=== PATIENT | male | born 1950 | race Caucasian/White ===

== ENCOUNTER 2021-08-17 07:28 | Outpatient (CLI) | payer MEDICARE, SELFPAY ==
--- NOTE | 2021-08-17 07:43 | ECG_ITS ---
Measurements Intervals [place] Rate: 59 P: 73 [place]: 213 QRS: -28 QRSD: 84 T: -20 QT: 378 QTc: 377 Interpretive Statements SINUS BRADYCARDIA WITH FIRST DEGREE AV BLOCK INCOMPLETE RIGHT BUNDLE BRANCH BLOCK BORDERLINE T WAVE ABNORMALITY- INFERIOR LEADS BASELINE ARTIFACT- I, II, III, AVR, AVL, AVF, V1-V6 ABNORMAL ECG Electronically Signed On 08-17-2021 8:59:54 CDT by Carlos Nguyen D.O.
== END 2021-08-17 07:29 | disposition home or self-care (01) ==
LOC: ANHSURGERY 07:33
PROVIDERS: PCP Pediatrics; Visit Provider Neurological Surgery
DX: Z01.810 Encounter for preprocedural cardiovascular examination (principal); I10 Essential (primary) hypertension; I45.10 Unspecified right bundle-branch block; I44.0 Atrioventricular block, first degree; R00.1 Bradycardia, unspecified
CPT/HCPCS: 93005

== ENCOUNTER 2021-09-29 13:00 | Observation (INO) | payer MEDICARE, SELFPAY ==
[2021-08-16 12:42] VITALS: BMI 30.4
--- NOTE | 2021-08-16 13:20 | PC.NURSE ---
Report to the Outpatient Waiting Room, entrance under the green pavilion located off [facility], at time _6:00AM on date __09/28/21 . OR Time: ___7:30AM . - You and your visitor will be asked a series of questions to screen for COVID 19 for your protection. - Only one visitor is allowed at this time. - The patient visitor is requested to leave or wait in car when not with patient. - A mask is required within the hospital. Patients may have clear liquids (water, carbonated beverages, clear teas, apple juice) until 3 hours prior to surgery with a maximum of 20 ounces. - No food from midnight until time of surgery - Infants may have breast milk until 4 hours before surgery, formula 6 hours prior to surgery. - Children will be allowed to drink immediately following surgery. If applicable, please bring a bottle or sippy cup to assist with drinking. Juice, water, soda, and popsicles are readily available. For infants on formula, please bring formula the day of surgery. Pacifiers are allowed. Take the following medications with a SIP of water the morning of surgery: __AMLODIPINE, CARVEDILOL, HYDROCODONE NEEDED Medications to discontinue per physician ___HOLD DICLOFENAC 7 DAYS PRE-OP Date to take last dose___08/22/21 Please no make-up, nail chilean, hairspray, perfume, deodorant, or body powder the day of surgery. No jewelry (including any body piercings) or valuables the day of surgery, leave them at home. Please take a shower or bath the night before, or the morning of, surgery with an antibacterial soap. Wear comfortable, loose fitting clothing. Children are encouraged to wear pajamas. - Jewelry must be removed prior to entering the operating room. Rings and piercings that are not removed may be cut off. - The hospital will not accept responsibility for valuables. - Please leave all valuables, including medications, at home the day of surgery. If you are going home after surgery, a licensed pick up truck driver must drive you home. - NO public transportation without another adult. - We recommend that an adult stay with you for 24 hours following discharge. - We also recommend that you do not drive, make important decision, drink alcoholic beverages, or take any drugs that were not prescribed by your health care provider for at least 24 hours after your discharge time. For Pediatric surgeries, we recommend two adults accompany the child home (only one inside the building at this time). Follow any additional instructions given to you from your surgeon. If you or anyone in your household have experienced Covid symptoms in the past week, please notify your surgeon or the nurse liaison at the phone number below for possible testing. Telephone instructions given to __PATIENT and asked if any additional questions and then verbalized understanding. Patient advised to call surgeon office or pre surgery nurse liaison [phone] if any additional questions.
--- NOTE | 2021-09-27 13:08 | WPDANESEPPF ---
Anes - Initial Pre Proc Eval Procedure: Operation Date: 09/28/21 07:30 Proposed Procedures p C4-5 Anterior Cervical Discectomy and Fusion - Elizeer Guerra MD Date/Time: 09/27/21 13:08 Surgeon: Eliezer Guerra MD Pre Op Diagnosis: neurofaraminal stenosis of spine, cervical spondyl Patient Data Age: 70 Gender: M Height: 1.73 m Weight: 91 kg Allergies Allergy/AdvReac Type Severity Reaction Status Date / Time No Known Allergies Allergy Verified 09/28/21 06:08 Home Medications Medication Instructions Recorded Confirmed Type amlodipine 10 mg tablet 1 tablet PO QAM 08/16/21 09/28/21 History carvedilol 12.5 mg tablet 1 tablet PO BID 08/16/21 09/28/21 History diclofenac sodium 75 mg 1 tablet PO QAM 08/16/21 09/28/21 History tablet,delayed release febuxostat 40 mg tablet 40 mg PO QAM 08/16/21 09/28/21 History hydrocodone 5 mg-acetaminophen 325 2 tablet PO Q4-6H PRN Pain 08/16/21 09/28/21 History mg tablet lisinopril 40 mg tablet 1 tablet PO QAM 08/16/21 09/28/21 History omeprazole 20 mg capsule,delayed 1 cap PO HS 08/16/21 09/28/21 History release psyllium husk 3.4 gram/5.4 gram 1 tbsp PO DAILY 08/16/21 09/28/21 History oral powder (Metamucil) ECG: Date of Service: 08/17/21 Procedure(s): CA 12 lead EKG Accession Number(s): [id number] cc: ~ ? Measurements Intervals? [place]? Rate: ? 59 ? P:? 73 [place]: ? 213? QRS:? -28 QRSD: ? 84 ? T:? -20 QT: ? 378? QTc:? 377? Interpretive Statements SINUS BRADYCARDIA WITH FIRST DEGREE AV BLOCK INCOMPLETE RIGHT BUNDLE BRANCH BLOCK BORDERLINE T WAVE ABNORMALITY- INFERIOR LEADS BASELINE ARTIFACT- I, II, III, AVR, AVL, AVF, V1-V6 ABNORMAL ECG Electronically Signed On 08-17-2021 8:59:54 CDT by Carlos Nguyen D.O. Patient hx anesthesia problems: none Family hx anesthesia problems: none Results Review: All pre-operative results and documents have been reviewed as part of the pre-operative evaluation. [facility] Past Medical History Medical History (Updated 09/28/21 @ 06:52 by Javier Carlos MD) Cervical spondylosis Chronic GERD HTN (hypertension) Obesity Osteoarthritis Spinal stenosis Social History Social History Smoking packs per day: 1 Smoking cigarettes per day: 20.0 Years smoked: 20 Smoking pack-years: 20.00 Smoking status: Former smoker Tobacco type: cigarettes Smoking end date: 09/23/79 Substance use: never Living arrangements: with family Additional living arrangements comments: Spiritual care concerns: No Anes - Eval Final PreProcedure Day of Procedure 09/27/21 13:08 Patient weight: obese Heart: regular rate and rhythm Lungs: clear to auscultation and normal air movement Airway: Mallampati scale class II Neurological: alert and oriented Last oral intake: >/= 8 hours ASA classification: III Emergent: no Anesthetic plan: proceed Anesthesia type and monitoring: general ETT Results Review: All pre-operative results and documents have been reviewed as part of the pre-operative evaluation. Informed Consent: The patient's anesthetic plan and its attendant risks and benefits were discussed with the patient/family/POA. Questions were solicited and answers provided to the satisfaction of the patient/family/POA.
[2021-09-28] VITALS (19 sets, daily range): BP systolic 107–167; BP diastolic 52–83; PULSE 58–85; RESP 12–20; TEMP 36.3–37; O2SAT 89–99
[2021-09-28] MEDS: LACTATED RINGERS 1,000 ML 30 ML IV CONT ×2 (07:10→09:38)
--- NOTE | 2021-09-28 07:36 | PM.IMHP ---
H&P: HPI History of Present Illness Date/Time: 09/28/21 07:36 Chief Complaint: Neck and arm pain Narrative: Mr. Munroe is a 70-year-old gentleman with neck and arm pain related to an L4-5 process who presents for anterior cervical diskectomy and fusion at that level. He has no specific muscle group weakness nor dermatomal numbness. He is not having bowel or bladder difficulty. Review of Systems Neurologic: Comments: No numbness or weakness PMFSH Past Medical History Medical History Cervical spondylosis Chronic GERD HTN (hypertension) Obesity Osteoarthritis Spinal stenosis Social History Social History Smoking packs per day: 1 Smoking cigarettes per day: 20.0 Years smoked: 20 Smoking pack-years: 20.00 Smoking status: Former smoker Tobacco type: cigarettes Smoking end date: 09/23/79 Substance use: never Living arrangements: with family Additional living arrangements comments: Spiritual care concerns: No Meds Home Medications and Allergies Home Medications Medication Instructions Recorded Confirmed Type amlodipine 10 mg tablet 1 tablet PO QAM 08/16/21 09/28/21 History carvedilol 12.5 mg tablet 1 tablet PO BID 08/16/21 09/28/21 History diclofenac sodium 75 mg 1 tablet PO QAM 08/16/21 09/28/21 History tablet,delayed release febuxostat 40 mg tablet 40 mg PO QAM 08/16/21 09/28/21 History hydrocodone 5 mg-acetaminophen 325 2 tablet PO Q4-6H PRN Pain 08/16/21 09/28/21 History mg tablet lisinopril 40 mg tablet 1 tablet PO QAM 08/16/21 09/28/21 History omeprazole 20 mg capsule,delayed 1 cap PO HS 08/16/21 09/28/21 History release psyllium husk 3.4 gram/5.4 gram 1 tbsp PO DAILY 08/16/21 09/28/21 History oral powder (Metamucil) Allergies Allergy/AdvReac Type Severity Reaction Status Date / Time No Known Allergies Allergy Verified 09/28/21 06:08 Vital Signs Vital Signs - 24 hr 09/28/21 07:14 Temperature 97.6 F Pulse Rate 61 Respiratory Rate 16 Blood Pressure 160/71 H Pulse Oximetry 99 Oxygen Delivery Room Air Exam Narrative: Patient is an elderly white male supine on the hospital bed in no acute distress. He is awake, alert, oriented x3 with good fund of knowledge, recall events and fluent speech. His face is symmetrical and his eyes were conjugate. He has no upper extremity drift dysmetria or dyspraxia. Strength is 5/5 in all muscle groups of the bilateral upper extremities. Sensation is intact to light touch at the upper extremities Clear to auscultation Regular rate and rhythm Assessment and Plan Assessment and plan (1) Cervical spondylosis: Code(s): M47.812 - Spondylosis without myelopathy or radiculopathy, cervical region Status: Acute Plan We will proceed with the planned C4-5 anterior cervical diskectomy and fusion. I described to him again that operation, its risks, potential benefits, the operative and postoperative course in detail and answered all his questions personally. He indicates understanding and elects to proceed with that operation.
--- NOTE | 2021-09-28 07:40 | WPDHPUPDATE1 ---
History and Physical Update Update Date/Time: 09/28/21 07:40 History and Physical has been reviewed, including an updated exam of the patient. There are NO changes in the patient's condition. Risks, benefits, and alternatives have been discussed and questions answered. Patient agrees to proceed with procedure.
[2021-09-28] MEDS: ceFAZolin 2 GM/D5W 50 ML 2 GM/50 ML BAG IVPB (08:00)
[2021-09-28] MEDS: LIDO 1%/EPINEPHRINE/PF 1:200,000 30 ML VIAL 10 ML XX (08:32)
--- NOTE | 2021-09-28 09:35 | W.PM.PROC2 ---
Procedure Note - Detailed Date of Procedure 09/28/21 Pre-op Diagnosis neurofaraminal stenosis of spine, cervical spondyl Post-op Diagnosis Same Procedure Performed C4-5 anterior cervical diskectomy and fusion Surgeon Eliezer Guerra MD Environmental Epidemiologist Daniel Anesthesia General Indications Mr. Munroe is a 70-year-old gentleman with neck and arm pain related to the above pathology who presents for decompression and fusion from an anterior approach. Findings Foraminal stenosis, spondylosis Description of Procedure Mr. Munroe was brought to the operating room in the supine position, was sedated, intubated and placed under general anesthesia in routine fashion. The area of operation on the right side of his neck was examined, marked for incision, prepped and draped in routine sterile fashion. Incision was marked from the midline over the medial aspect of the sternocleidomastoid muscle in curvilinear transverse fashion 3 fingerbreadths above the sternal notch. This area was injected with 0.5% lidocaine with [id number] epinephrine. Intravenous antibiotics given prior to incision. Incision was made with a 10 blade scalpel down to the platysma muscle. The skin was undermined and the platysma muscle was divided longitudinally with its fibers using Metzenbaum scissors. Plane was then dissected medial to the sternocleidomastoid muscle down to the anterior aspect of the spine using the finger and Metzenbaum scissors. A verifying x-rays obtained to verify the level of operation. The plate at the level below was identified. Longus colli muscle was dissected free of the anterior aspect of the spine in the subperiosteal plane using Bovie cautery. Shadow Line retractor system placed. [place] pins were placed into C4 and C5 and distraction placed over the disc space. The disc space was entered using a 15 blade scalpel cutting along the margin of bone above and below. A curved curette and pituitary rongeur were used to remove as much cartilaginous endplate disc material was possible that the bleeding cortical flat surface on the opposing bones and down to the annulus and ligament posteriorly. The Midas-Johan drill was used to bur down the endplates to bleeding cortical flat surfaces as well as to begin a bony foraminotomy bilaterally. Under microscopy curved curette was used to come through the annulus and ligament. 2. Kerrison punch was then used to remove the annulus ligament, posterior osteophytes and to complete a bony foraminotomy bilaterally. This was done until a nerve hook could be placed out each foramen to confirm lack of compression. The disc space was then sized and a 7 mm Z Lenke interbody device was chosen and filled with a mixture of local autograft bone and I factor. It was then tamped into the interspace until the intervertebral titanium plate was flush with the anterior aspect of the spine. A drill and drill guide were used to create holes through the endplate into the vertebral body above and below. 16 mm screws were then placed into these holes to hand tightness and into the locking mechanism. The locking mechanism was then engaged at each screw. A verified x-rays obtained to verify good position of the instrumentation which was confirmed. The wound was then copiously irrigated with bacitracin irrigation all bleeding stopped with bipolar and Bovie cautery and Surgiflo. The wound was then closed in layered fashion with 3-0 Vicryl interrupted sutures in the platysma muscle and in the dermis. The skin was closed with a running 4-0 Monocryl subcuticular stitch and dressed with Dermabond. The patient was allowed to come out from general anesthesia in the operating room and was taken to the recovery room in stable condition. There were no immediate complications of this operation. All counts were reported correct at the end of the case. Blood loss was 10 cc. The patient was neurologically at his baseline postoperatively. Implants Z-link integral
[2021-09-28] MEDS: fentaNYL CITRATE INJ (*CRX) 100 MCG/2 ML VIAL 25 MCG IV PUSH ×6 (10:23→12:52)
--- NOTE | 2021-09-28 11:42 | SUR.PHASEI ---
1135; LUNCH TRAY ORDERED
[2021-09-28] MEDS: oxyCODONE HCL (*CRX) 5 MG TAB IR PO (12:35)
--- NOTE | 2021-09-28 13:05 | SUR.PHASEI ---
report faxed to [address] [place] [address]. Pt and spouse notified of room number 251
--- NOTE | 2021-09-28 13:45 | ADMGEN ---
This patient, Jerry Munroe, was admitted to Medical Room 251-01. Patient/family oriented to hospital policies and general routines including ID bracelet, bed and alarms, visiting hours, pain management, procedures, bathroom and other care routines, personal items, smoking policy, room service/diet, and visiting hours. Information on how to activate the Rapid Response Team has been discussed. Patient/Family are encouraged to report perceived risks to care and to ask questions if they do not understand what they are told or what they should do.
[2021-09-28] MEDS: HYDROcodone/acetaminophen (*CRX) 5-325 MG TABLET 1 TAB PO (14:24)
[2021-09-28] MEDS: MORPHINE SULFATE (*CRX) 2 MG/ML INJ IV PUSH ×2 (16:14→20:09)
[2021-09-28] MEDS: DOCUSATE SODIUM 100 MG CAPSULE PO (20:08)
[2021-09-28] MEDS: carvediloL 12.5 MG TABLET PO (20:08)
[2021-09-28] MEDS: PANTOPRAZOLE 40 MG TABLET PO (20:09)
[2021-09-28] MEDS: HYDROcodone/acetaminophen (*CRX) 10-325 MG TABLET 1 TAB PO (23:24)
[2021-09-29] VITALS (7 sets, daily range): BP systolic 137–150; BP diastolic 55–71; PULSE 53–77; RESP 17–20; TEMP 36–37.1; O2SAT 93–99
--- NOTE | ~2021-09-29 | XR_ITS ---
XR fluoroscopy no charge DATE: 09/28/2021 11:31 INDICATION: Anterior cervical discectomy TECHNIQUE: 2 spot lateral C-arm images of the cervical spine. 8.9 seconds fluoroscopy time 1.69 mGy COMPARISON: None FINDINGS: Instrumentation overlies the C4-C7 vertebra. Please refer to surgical procedure report. IMPRESSION: Anterior cervical discectomy Reviewed, dictated and finalized at [facility]. Reviewed, dictated and finalized at [facility].
[2021-09-29] MEDS: HYDROcodone/acetaminophen (*CRX) 10-325 MG TABLET 1 TAB PO ×3 (06:39→20:19)
--- NOTE | 2021-09-29 09:20 | PM.PNGS ---
Progress Note: A&P Assessment and Plan (1) Cervical spondylosis: Code(s): M47.812 - Spondylosis without myelopathy or radiculopathy, cervical region Status: Acute Assessment and Plan: PAtient is doing well post ACDF Continue to mobilize Anticipate stay until POD#2 due to patinet concerns for ensuring patent airway Subjective Subjective Date/Time Seen: 09/29/21 09:20 PAtient notes muscle spasms in shoulder blade on right. LUE pain resolved Notes history of postoperative hematoma from prior surgery; nervous about repeated possbility Desires to stay until POD #2 No difficulties with swallowing; voice strong Exam Narrative: Awake, alert oriented x 3 Speech CF JESSICA EOMI Face= TML MAEW with good strength Dressing / incision CDI Objective Data Vital Signs Vital Signs: Vital Signs - 24 hr 09/28/21 09:45 09/28/21 10:00 09/28/21 10:15 Temperature 97.6 F Pulse Rate 75 70 70 Respiratory Rate 20 20 20 Blood Pressure 145/67 H 146/75 H 139/75 Pulse Oximetry 97 99 93 Oxygen Delivery Simple Face Mask Simple Face Mask Room Air Oxygen Flow Rate 8 8 09/28/21 10:30 09/28/21 10:45 09/28/21 11:00 Temperature Pulse Rate 67 67 62 Respiratory Rate 16 14 12 Blood Pressure 143/67 H 111/75 159/83 H Pulse Oximetry 99 93 95 Oxygen Delivery Room Air Room Air Room Air Oxygen Flow Rate 09/28/21 11:30 09/28/21 12:00 09/28/21 12:30 Temperature Pulse Rate 74 66 70 Respiratory Rate 18 18 18 Blood Pressure 107/64 118/61 114/52 L Pulse Oximetry 95 95 94 Oxygen Delivery Room Air Room Air Room Air Oxygen Flow Rate 09/28/21 13:00 09/28/21 13:50 09/28/21 14:20 Temperature 97.4 F L 97.9 F Pulse Rate 66 58 L 72 Respiratory Rate 20 15 16 Blood Pressure 134/74 132/63 144/62 H Pulse Oximetry 97 95 Oxygen Delivery Room Air Oxygen Flow Rate 09/28/21 15:10 09/28/21 16:10 09/28/21 19:32 Temperature 98.1 F 98 F 97.6 F Pulse Rate 67 79 64 Respiratory Rate 14 16 20 Blood Pressure 138/61 143/78 H 165/63 H Pulse Oximetry 93 96 89 L Oxygen Delivery Oxygen Flow Rate 09/28/21 20:08 09/28/21 20:00 09/28/21 23:17 Temperature 98.6 F Pulse Rate 64 64 85 Respiratory Rate 20 20 Blood Pressure 167/76 H Pulse Oximetry 89 L 95 Oxygen Delivery Room Air Oxygen Flow Rate 09/29/21 03:17 Temperature 97.8 F Pulse Rate 77 Respiratory Rate 20 Blood Pressure 150/69 H Pulse Oximetry 93 Oxygen Delivery Oxygen Flow Rate Intake/Output Intake/Output: Intake & Output 09/26/21 09/27/21 09/28/21 09/29/21 23:59 23:59 23:59 23:59 Intake Total 3500 580 Output Total 1275 Balance 2225 580 Meds/Results Medications: Active Medications Generic Name Dose Route Start Last Admin Trade Name Freq PRN Reason Stop Dose Admin Hydrocodone Bitart/Acetaminophen 1 tab 09/28/21 13:29 09/28/21 14:24 Hydrocodone/Acetaminophen (*Crx) 5-325 Mg Tablet PO 1 tab Q4H PRN Administration Mild Pain (1-3) Hydrocodone Bitart/Acetaminophen 1 tab 09/28/21 13:29 09/29/21 06:39 Hydrocodone/Acetaminophen (*Crx) 10-325 Mg Tablet PO 1 tab Q4H PRN Administration Moderate Pain (4-6) Al Hydrox/Mg Hydrox/Simethicone 20 ml 09/28/21 13:29 Mag Hydrox/Al Hydrox/Simeth 30 Ml Udc PO Q4H PRN Indigestion/Heartburn Amlodipine Besylate 10 mg 09/29/21 09:00 Amlodipine Besylate 5 Mg Tablet PO QAM ZULEMA Bisacodyl 10 mg 09/28/21 13:29 Bisacodyl 10 Mg Suppository RECTAL DAILY PRN Constipation Carvedilol 12.5 mg 09/28/21 21:00 09/28/21 20:08 Carvedilol 12.5 Mg Tablet PO 12.5 mg Q12HR ZULEMA Administration Cyclobenzaprine HCl 10 mg 09/28/21 13:29 Cyclobenzaprine Hcl 10 Mg Tablet PO TID PRN Muscle Spasms Docusate Sodium 100 mg 09/28/21 21:00 09/28/21 20:08 Docusate Sodium 100 Mg Capsule PO 100 mg Q12HR ZULEMA Administration Febuxostat 40 mg 09/29/21 09:00 Febuxostat 40 Mg Tablet PO 10/29/21 08:59
[2021-09-29] MEDS: carvediloL 12.5 MG TABLET PO ×2 (09:43→20:19)
[2021-09-29] MEDS: DOCUSATE SODIUM 100 MG CAPSULE PO ×2 (09:43→20:19)
[2021-09-29] MEDS: amLODIPine BESYLATE 5 MG TABLET 10 MG PO (09:44)
[2021-09-29] MEDS: lisinopriL 20 MG TABLET 40 MG PO (09:44)
[2021-09-29] MEDS: FEBUXOSTAT 40 MG TABLET PO (09:45)
[2021-09-29] MEDS: PSYLLIUM POWDER PACKET 1 PACKET PO (09:45)
--- NOTE | 2021-09-29 11:42 | PCCCNOTE ---
On 09/29/21, the student, [Shereen Whitaker ], provided care and completed [facility] documentation on this patient. I have reviewed the student's documentation and agree with the findings.
[2021-09-29] MEDS: PANTOPRAZOLE 40 MG TABLET PO (20:19)
[2021-09-30] MEDS: HYDROcodone/acetaminophen (*CRX) 10-325 MG TABLET 1 TAB PO ×3 (01:40→11:03)
[2021-09-30 03:12] VITALS: BP 138/63; PULSE 55; RESP 16; TEMP 36.7; O2SAT 94
[2021-09-30] MEDS: lisinopriL 20 MG TABLET 40 MG PO (08:53)
[2021-09-30] MEDS: PSYLLIUM POWDER PACKET 1 PACKET PO (08:53)
[2021-09-30] MEDS: carvediloL 12.5 MG TABLET PO (08:54)
[2021-09-30] MEDS: amLODIPine BESYLATE 5 MG TABLET 10 MG PO (08:54)
[2021-09-30] MEDS: FEBUXOSTAT 40 MG TABLET PO (08:57)
--- NOTE | 2021-09-30 13:26 | PM.DS ---
DS: Admitting Diagnosis Discharge Date 09/30/2021 Admitting Diagnosis Cervical spondylosis and foraminal stenosis DS: Discharge Diagnosis Discharge Diagnosis (1) Cervical spondylosis: Code(s): M47.812 - Spondylosis without myelopathy or radiculopathy, cervical region Status: Acute DS: Summary Hospital Course Reason for hospitalization: Mr. Munroe is a 70-year-old gentleman who presented to the hospital for a C4-5 anterior cervical diskectomy and fusion to treat spondylosis and foraminal stenosis causing radiculopathy. Hospital Course: Mr. Munroe was taken to the operating room on 09/28/2021 with the aforementioned operation was performed without complication. The patient went to the floor postoperatively. Physical and occupational therapy were involved in his care. By postoperative day 2 he was eating, ambulating, emptying his bladder his pain was under control with by mouth pain medicine. Wounds remained clean dry and intact. He was afebrile stable vital signs. He was neurologically intact. He was therefore like to be discharged to home. Time Spent with Patient Time attestation: Total time spent providing and/or coordinating discharge services: Discharge Plan Discharge Attending physician on discharge: Eliezer Guerra Discharging Clinician: Eliezer Guerra Anticipated Discharge Date/Time: 09/30/21 13:21 Patient Disposition: Home, Self-Care Activity: may shower, may drive after 2 weeks and other - see discharge instructions Diet: as tolerated and regular Wound Care Instructions: incision open to air Discharge Instructions: INSTRUCTIONS AFTER YOUR CERVICAL FUSION (ANTERIOR OR POSTERIOR)/CERVICAL DISC REPLACEMENT (ARTHRODESIS) Incisions may be closed with either: Steri-strip tapes (let them wear off on their own). Surgical glue (let it peel off on its own). Sutures or justen (call the office for an appointment to have these removed). Keep the incision dry for the first three days after surgery. Never apply ointments or lotions to the incision. The incision should be checked daily. Notify the office if there is drainage, redness, or if you have fever with a temperature of over 100 degrees. After the third postop day, it is okay to shower. Let soap and water run over your incision. No soaking in a tub, hot tub, or pool for at least one month. You are encouraged to walk as much as comfortable, with assistance as needed. For example, it may be beneficial to walk short distances hourly during the waking hours and gradually increase walking during your recovery period. Fatigue can be common. If a collar has been instructed by your physician, follow the instructions you were given. Please call the office for clarification if needed. Avoid any bending or heavy lifting. You have an [id number]-pound lift restriction until further advised by your physician (A gallon of milk weighs eight pounds). Sometimes a bone growth stimulator will be used after surgery. Instructions for the use of the stimulator will come from your field marketing representative. Make frequent position changes, avoiding long periods of sitting. Try not to sit more than 30 minutes at a time. You may engage in sexual activity in two weeks as tolerated. No housework, especially vacuuming, making beds, or doing laundry until seen in the office. You may walk stairs carefully. Minimize car rides for two weeks. Driving can usually be resumed after three to four weeks; however, you may not drive at that time if still taking pain medications, or if you are still wearing your hard collar. Once you are discharged from the hospital, please call the office to set up your postop appointment. The physician may order pain medication and/or muscle relaxers. As time goes by, you should require less of these. Always take your medication as ordered, and only if needed. If you take more than prescribed, it will not be refilled early. If you feel you require dennis
== END 2021-09-30 14:05 | disposition home or self-care (01) ==
LOC: ANHSURGERY 13:05 → ANH2MED 13:05
PROVIDERS: Admitting Provider Neurological Surgery; PCP Pediatrics; Visit Provider Neurological Surgery
PROC: 0RB30ZZ Excision of Cervical Vertebral Disc, Open Approach (ICD-10-PCS; CPT 22551; principal; 2021-09-28 07:30)
DX: M47.812 Spondylosis without myelopathy or radiculopathy, cervical region (principal); M48.02 Spinal stenosis, cervical region; I10 Essential (primary) hypertension; K21.9 Gastro-esophageal reflux disease without esophagitis; M19.90 Unspecified osteoarthritis, unspecified site; E66.9 Obesity, unspecified; Z68.29 Body mass index [BMI] 29.0-29.9, adult; Z87.891 Personal history of nicotine dependence; Z79.891 Long term (current) use of opiate analgesic
CPT/HCPCS: 22551; 22853; 20936; 36415; 86850; 86900; 86901; 99199; A9270; G0378; J0690; J1170; J2250; J2270; J2405; J2704; J3010; J7120

== ENCOUNTER 2021-10-06 13:03 | Emergency (ER) | payer MEDICARE, SELFPAY ==
[2021-10-06] VITALS (22 sets, daily range): BP systolic 141–177; BP diastolic 78–98; PULSE 78–97; RESP 16–18; TEMP 35.9–36.3; O2SAT 93–99
--- NOTE | ~2021-10-06 | CT_ITS ---
EXAMINATION: CT soft tissue neck w con DATE: 10/06/2021 16:13 INDICATION: Dysphagia and throat swelling post recent neck surgery TECHNIQUE: Computed tomography (CT) of the neck was performed with 75 mL Omnipaque-300 intravenous co ntrast. Automated exposure control and iterative reconstruction technique were employed. The dose-lucinda gth product was 493.28 mGy-cm. COMPARISON: None FINDINGS: Chronic C5-C6 anterior spinal fusion with incorporated bone graft and anterior plate and screw fixati on. Presumably more recent anterior spinal fusion procedure at C4-C5 with not incorporated bone graft material with bone graft cage and anterior plate and screw fixation. There is a loculated fluid ad ection in the prevertebral space anterior to C3 and C4 which measures 2.7 cm craniocaudally and 2.6 x 1.5 cm in maximal transaxial dimensions which exerts mass effect upon the posterior wall of the hypo pharynx. There is a 10 x 10 x 7 mm foreign body in the left side of the vallecula. Epiglottis is norm al. 1.8 cm hypoenhancing left thyroid nodule. Bilateral parotid and submandibular glands are normal. Thoracic aorta is normal in caliber with no dissection. Left vertebral artery is dominant with diminu tive right vertebral artery. Visualized apices of lungs are clear. Mild mucosal thickening in the par anasal sinuses with change of bilateral antrectomies and middle turbinectomies. IMPRESSION: 1. 2.7 x 2.6 x 1.5 cm prevertebral fluid collection anterior to a reportedly recent C4-C5 anterior sp inal fusion with differential including hematoma/seroma or abscess. This exerts mass effect upon the posterior wall of the hypopharynx likely accounting for the reported dysphagia. 2. Retained foreign body in the left side of the vallecula. Reviewed, dictated and finalized at location B. IMPRESSION: 1. 2.7 x 2.6 x 1.5 cm prevertebral fluid collection anterior to a reportedly re cent C4-C5 anterior spinal fusion with differential including hematoma/seroma o r abscess. This exerts mass effect upon the posterior wall of the hypopharynx l ikely accounting for the reported dysphagia. 2. Retained foreign body in the left side of the vallecula.
--- NOTE | 2021-10-06 13:38 | ED.GENADULT ---
HPI - General Adult General Chief complaint: Unspecified <RODOLFO Cruz Last Filed: 10/06/21 19:48> Stated complaint: something stuck in throat <RODOLFO Cruz Last Filed: 10/06/21 19:48> Time Seen by Provider: 10/06/21 13:21 <RODOLFO Cruz Last Filed: 10/06/21 19:48> Source: patient <RODOLFO Cruz Last Filed: 10/06/21 19:48> Mode of arrival: ambulatory <RODOLFO Cruz Last Filed: 10/06/21 19:48> Limitations: no limitations <RODOLFO Cruz Last Filed: 10/06/21 19:48> History of Present Illness HPI narrative: Patient is a 71 y/o female who presents to the ED with c/o dysphagia. Patient had a C4-5 anterior cervical discectomy and fusion performed by Dr. Daniel here on 09/28. He reports he has been having some issues with swelling in his anterior neck and dysphagia since the surgery. He felt the swelling became worse last night, but seems to have improved slightly today. This morning however he was attempting to take a pill and felt the pill became stuck in his throat. Denies any vomiting. States he was still able to drink and pass water. Patient reports the pill seems to have moved through upon my evaluation. He denies feeling like it is stuck any longer. He is concerned about the neck swelling however. Denies any difficulty breathing. No swelling of lips, tongue. Denies any significant neck pain. No fevers. He has follow-up with Dr. Daniel 6 weeks post op. <RODOLFO Cruz Last Filed: 10/06/21 19:48> Related Data Home medications: Home Medications Medication Instructions Recorded Confirmed amlodipine 10 mg tablet 1 tablet PO QAM 08/16/21 09/28/21 carvedilol 12.5 mg tablet 1 tablet PO BID 08/16/21 09/28/21 diclofenac sodium 75 mg 1 tablet PO QAM 08/16/21 09/28/21 tablet,delayed release febuxostat 40 mg tablet 40 mg PO QAM 08/16/21 09/28/21 lisinopril 40 mg tablet 1 tablet PO QAM 08/16/21 09/28/21 omeprazole 20 mg capsule,delayed 1 cap PO HS 08/16/21 09/28/21 release psyllium husk 3.4 gram/5.4 gram 1 tbsp PO DAILY 08/16/21 09/28/21 oral powder (Metamucil) <Yajaira Beth PA-C - Last Filed: 10/06/21 19:48> Allergies/adverse reactions: Allergies Allergy/AdvReac Type Severity Reaction Status Date / Time No Known Allergies Allergy Verified 10/06/21 13:22 <Yajaira Beth PA-C - Last Filed: 10/06/21 19:48> Review of Systems Review of Systems: CONSTITUTIONAL: Denies fever. ENT: Reports swelling of anterior neck, dysphagia. Denies swelling of lips/tongue, sore throat. CARDIOVASCULAR: Denies chest pain. RESPIRATORY: Denies dyspnea. GASTROINTESTINAL: Denies nausea, vomiting. SKIN: Denies rash or itching. MUSCULOSKELETAL: Denies neck pain. <Yajaira Beth PA-C - Last Filed: 10/06/21 19:48> All systems reviewed & are unremarkable except as noted in HPI and below <Yajaira Beth PA-C - Last Filed: 10/06/21 19:48> [facility] Past Medical History Medical History: Medical History Cervical spondylosis Chronic GERD HTN (hypertension) Obesity Osteoarthritis Spinal stenosis <Yajaira Beth PA-C - Last Filed: 10/06/21 19:48> Surgical History Surgical History: Surgical History (Updated 10/06/21 @ 13:39 by Yajaira Beth PA-C) History of cervical discectomy <Yajaira Beth PA-C - Last Filed: 10/06/21 19:48> Social History Social History: Social History Smoking packs per day: 1 Smoking cigarettes per day: 20.0 Years smoked: 20 Smoking pack-years: 20.00 Smoking status: Former smoker Tobacco type: cigarettes Smoking end date: 09/23/79 Alcohol intake: never Substance use: never Additional living arrangements comments: Spiritual care concerns: No <Yajaira Beth PA-C - Last Filed: 10/06/21 19:48> Exam Narrative: GENERAL: Well appearing, well-nou
[2021-10-06 14:15] LABS: Basophils Percent Auto 0.6 % (0.2-1.2); Eosinophils Absolute Auto 0.2 K/mm3 (0-0.3); Eosinophils Percent Auto 3.2 % (0-4.4); Hematocrit 45.1 % (42.0-52.0); Hemoglobin 15.6 g/dL (14.0-18.0); Immature Granulocyte Absolute 0.03 K/mm3 (0.00-0.031); Immature Granulocyte Percent A 0.4 % (0-0.5); Lymphocytes Absolute Auto 1.78 K/mm3 (0.9-3.2); Lymphocytes Percent Auto 25.6 % (18.3-44.2); Mean Corpuscular HGB Conc 34.6 g/dl (32-36); Mean Corpuscular Hemoglobin 29.9 pg (26-34); Mean Corpuscular Volume 86.4 fl (80-100); Mean Platelet Volume 9.6 fl (7.4-10.4); Monocytes Absolute Auto 0.6 K/mm3 (0.1-0.6); Monocytes Percent Auto 8.1 % (2.6-8.5); Neutrophils Absolute Auto 4.3 K/mm3 (1.3-6.7); Neutrophils Percent Auto 62.1 % (45.5-73.1); Platelet Count Result 189 k/mm3 (150-375); Red Blood Count 5.22 M/mm3 (4.6-6.20); Red Cell Distribution Width 13.2 % (11.5-14.5)
[2021-10-06 14:25] LABS: Alanine Aminotransferase 46 U/L (6-50); Albumin Level 4.3 g/dL (3.5-5.1); Alkaline Phosphatase 94 U/L (38-126); Anion Gap 3 mmol/L (8-16); Aspartate Amino Transferase 37 U/L (17-59); Bilirubin,Total 0.6 mg/dL (0.2-1.3); Blood Urea Nitrogen 15 mg/dL (9-20); Calcium 8.9 mg/dL (8.4-10.2); Carbon Dioxide 27 mmol/L (22-30); Chloride 105 mmol/L (98-107); Estimated CRCL calculation 65 ml/min; Estimated Glomerular Filt Rate > 60; Glucose 107 mg/dL (65-110); Potassium 4.6 mmol/L (3.4-5.0); Sodium 135 mmol/L (137-145)
--- NOTE | 2021-10-06 17:33 | PC.NURSE ---
Hx of HTN, has evening dose of medication due tonight. BP reading 166/98, CHRISTOPHE Gates aware. No new orders at this time.
== END 2021-10-06 18:00 | disposition home or self-care (01) ==
PROVIDERS: Physician Assistant; Emergency Provider Emergency Medicine; PCP Pediatrics
DX: G97.61 Postprocedural hematoma of a nervous system organ or structure following a nervous system procedure (principal); R13.10 Dysphagia, unspecified; Z98.1 Arthrodesis status; I10 Essential (primary) hypertension; M19.90 Unspecified osteoarthritis, unspecified site; E66.9 Obesity, unspecified; Z68.31 Body mass index [BMI] 31.0-31.9, adult; Z87.891 Personal history of nicotine dependence
CPT/HCPCS: 36415; 70491; 80053; 85025; 99284; Q9967

== ENCOUNTER 2021-11-13 09:45 | Outpatient (CLI) | payer MEDICARE, SELFPAY ==
--- NOTE | ~2021-11-13 | XR_ITS ---
EXAMINATION:XR_CERV2-3V_CR DATE: 11/13/2021 10:09 INDICATION: Neck pain TECHNIQUE: AP, lateral, lateral swimmers and odontoid views of the cervical spine are provided. COMPARISON: 10/06/2021 FINDINGS: There are changes of anterior fusion and C4-5 and C5-6. Alignment is normal. The odontoid i s intact. No fracture is identified. The vertebral body heights are normal. There is severe facet ost eoarthritis in the mid cervical spine. Prevertebral soft tissues are normal. IMPRESSION: 1. Severe cervical spondylosis without acute findings. Reviewed, dictated and finalized at location B.
== END 2021-11-13 09:46 | disposition home or self-care (01) ==
PROVIDERS: PCP Pediatrics; Visit Provider Neurological Surgery
DX: M47.812 Spondylosis without myelopathy or radiculopathy, cervical region (principal)
CPT/HCPCS: 72040

== ENCOUNTER 2022-02-19 10:26 | Outpatient (CLI) | payer MEDICARE, SELFPAY ==
--- NOTE | ~2022-02-19 | XR_ITS ---
EXAM: XR_CERV2-3V_CR DATE: 02/19/2022 10:47 HISTORY: Neck pain, follow-up s/p sx in September 2021, h/o cervical discectomy. COMPARISON: 11/13/2021. FINDINGS: Anterior cervical fusion at C4-5 and C5-6. Interbody bone plug and devices remain in stabl e and good position Craniocervical association and atlantoaxial joint are aligned and display moderat e degenerative change. No prevertebral soft tissue swelling. Trace anterolistheses at C3-4 and C7-T1. Height loss at C5, remaining body heights are maintained. Multilevel degenerative disc disease. Nelly re multilevel arthropathy. IMPRESSION: Anterior cervical fusion at C4-5 and C5-6, without evident hardware-related complication. Degenerative changes, as described above. Reviewed, dictated and finalized at location K. ITY SPECIALIST IMPRESSION: Anterior cervical fusion at C4-5 and C5-6, without evident hardware -related complication. Degenerative changes, as described above.
== END 2022-02-19 10:27 | disposition home or self-care (01) ==
PROVIDERS: PCP Pediatrics; Visit Provider Neurological Surgery
DX: M47.812 Spondylosis without myelopathy or radiculopathy, cervical region (principal); Z98.890 Other specified postprocedural states; Z98.1 Arthrodesis status
CPT/HCPCS: 72040

== ENCOUNTER 2023-08-08 13:31 | Outpatient (CLI) | payer MEDICARE, SELFPAY ==
--- NOTE | ~2023-08-08 | MR_ITS ---
EXAMINATION: MR cervical spine wo con DATE: 08/08/2023 14:14 INDICATION: Spondylosis without myelopathy radiculopathy. TECHNIQUE: Magnetic resonance imaging (MRI) of the cervical spine was performed without intravenous c ontrast. COMPARISON: Cervical spine radiographs 02/19/2022 FINDINGS: Bone alignment is normal. There are changes of anterior fusion procedure from C4 to C6 with healed interbody bone graft and anterior plate and screws. There is mild chronic wedging of C7 verte bral body. There is mildly decreased disc height at C6-C7. The spinal cord signal intensity is normal . The following disc levels are specifically discussed: C2-C3: There is a central extrusion. There is no uncovertebral joint osteoarthritis. There is severe bilateral facet joint osteoarthritis. There is mild bilateral neural foraminal stenosis. There is mil d central canal stenosis. C3-C4: The disc does not extend beyond the endplate margin. There is mild bilateral uncovertebral misbah nt osteoarthritis. There is severe bilateral facet joint osteoarthritis. There is mild bilateral neur al foraminal stenosis. There is no central canal stenosis. C4-C5: There is mild bilateral uncovertebral joint hypertrophy. There is mild right facet joint osteo arthritis. There is ankylosis of left facet joint with moderate hypertrophy. There is mild bilateral neural foraminal stenosis. There is no central canal stenosis. C5-C6: There is mild left uncovertebral joint hypertrophy. There is mild left facet joint hypertrophy . There is mild left neural foraminal stenosis. There is no central canal stenosis. C6-C7: There is a central protrusion. There is mild bilateral uncovertebral joint osteoarthritis. The re is severe bilateral facet joint osteoarthritis. There is mild bilateral neural foraminal stenosis. There is mild central canal stenosis. C7-T1: There is a central extrusion. There is no uncovertebral joint osteoarthritis. There is severe bilateral facet joint osteoarthritis. There is mild bilateral neural foraminal stenosis. There is mil d central canal stenosis. IMPRESSION: 1. Mild cervical spondylosis. 2. Anterior fusion procedure from C4 to C6. Reviewed, dictated and finalized at location E.
== END 2023-08-08 13:32 | disposition home or self-care (01) ==
LOC: ANHIMG 13:32
PROVIDERS: PCP Pediatrics; Visit Provider Neurological Surgery
DX: M47.812 Spondylosis without myelopathy or radiculopathy, cervical region (principal); Z98.1 Arthrodesis status
CPT/HCPCS: 72141

== ENCOUNTER 2024-02-14 13:33 | Outpatient (CLI) | payer MEDICARE, SELFPAY ==
--- NOTE | ~2024-02-14 | MR_ITS ---
EXAMINATION: MR lumbar spine wo con DATE: 02/14/2024 14:09 INDICATION: Spondylosis of lumbar spine. TECHNIQUE: Magnetic resonance imaging (MRI) of the lumbar spine was performed without intravenous con trast. Sequences included sagittal T2-weighted FSE, sagittal T2-weighted FS FSE, sagittal T1-weighted FSE, and axial T2-weighted FSE. COMPARISON: None FINDINGS: There is 3 mm retrolisthesis of L1 on L2 and L2 on L3 and 3 mm anterolisthesis of L4 on L5. There is mild chronic anterior wedging of T11 and T12 vertebral bodies. There is mildly decreased di sc height at L1-L2, L3-L4, L4-L5, and L5-S1. The distal spinal cord signal intensity is normal. The c onus medullaris is at T12. The following disc levels are specifically discussed: L1-L2: There is a central extrusion. There is mild bilateral facet joint osteoarthritis. There is no neural foraminal stenosis. There is mild central canal stenosis. L2-L3: The disc is bulging. There is severe bilateral facet joint osteoarthritis. There is mild right and moderate left neural foraminal stenosis. There is mild central canal stenosis. L3-L4: There is a central extrusion. There is severe bilateral facet joint osteoarthritis. There is h ypertrophy of the ligamentum flavum. There is mild bilateral neural foraminal stenosis. There is mild central canal stenosis. L4-L5: The disc does not extend beyond the endplate margin. There is severe bilateral facet joint ost eoarthritis. There is hypertrophy of the ligamentum flavum. There is mild bilateral neural foraminal stenosis. There is moderate central canal stenosis. L5-S1: The disc is bulging and has an annular fissure. There is severe bilateral facet joint osteoart hritis. There is mild bilateral neural foraminal stenosis. There is mild central canal stenosis. IMPRESSION: 1. Moderate lumbar spondylosis. Reviewed, dictated and finalized at location A. FILLER
== END 2024-02-14 13:34 | disposition home or self-care (01) ==
LOC: ANHIMG 13:40
PROVIDERS: PCP Pediatrics; Visit Provider Pediatrics
DX: M47.896 Other spondylosis, lumbar region (principal)
CPT/HCPCS: 72148

== ENCOUNTER 2024-04-07 16:05 | Outpatient (CLI) | payer MEDICARE, SELFPAY ==
--- NOTE | ~2024-04-07 | XR_ITS ---
XR hip LT min 2V Ordering provider: Eliezer Guerra MD History: . M25.552 - Pain in left hip FOR 3 MO, NKI RADIATES INTO L HIP . Comparison: None. FINDINGS: BONES: No acute fracture or dislocation. HIP JOINT SPACES: Mild to moderate narrowing of the left hip suggestive of osteoarthritic changes. SACROILIAC JOINT SPACES/LUMBAR SPINE: The sacroiliac joint spaces shows left sacroiliitis. Mild degen erative changes of the visualized lower lumbar spine. PUBIC SYMPHYSIS: Normal. SOFT TISSUES: Normal. IMPRESSION: No acute osseous abnormality pelvis and left hip. Left sacroiliitis. Left hip mild to moderate osteoarthritic changes. Reviewed, dictated and finalized at location A. DUMPER OPERATOR
--- NOTE | ~2024-04-07 | XR_ITS ---
3 VIEWS LUMBAR SPINE Ordering provider: Eliezer Guerra MD History: . M48.061 - Spinal stenosis, lumbar region without neurogen... . Comparison: None. FINDINGS: VERTEBRAL BODIES:Lumbarization of S1. No visible fracture. Minimal anterolisthesis at the level of L 5-S1. Degenerative changes of the spine. Bony spinal canal stenosis is seen in the lower lumbar area. MRI is advised. DISK SPACES: Narrowing of the disc L4-L5, L5-S1 and S1-S2. SOFT TISSUES: Atherosclerotic changes of the aorta. Left sacroiliitis. IMPRESSION: No acute osseous abnormality lumbar spine. Bony spinal canal stenosis in the lower lumbar area. MRI is advised. Multilevel degenerative disc disease. Reviewed, dictated and finalized at location A. TER SEISMOGRAPH
== END 2024-04-07 16:06 | disposition home or self-care (01) ==
LOC: ANHIMG 16:07
PROVIDERS: PCP Pediatrics; Visit Provider Neurological Surgery
DX: M25.552 Pain in left hip (principal); M48.061 Spinal stenosis, lumbar region without neurogenic claudication; M51.369 Other intervertebral disc degeneration, lumbar region without mention of lumbar back pain or lower extremity pain; M46.1 Sacroiliitis, not elsewhere classified
CPT/HCPCS: 72110; 73502

== ENCOUNTER 2024-07-07 11:39 | Outpatient (CLI) | payer MEDICARE, SELFPAY ==
--- NOTE | 2024-07-07 12:41 | ECG_ITS ---
Test Date: 2024-07-07 13:01:54 Measurements Intervals [place] Rate: 58 P: 60 ND: 241 QRS: -14 QRSD: 94 T: 14 QT: 380 QTc: 375 Interpretive Statements SINUS BRADYCARDIA WITH FIRST DEGREE AV BLOCK LOW QRS VOLTAGE IN PRECORDIAL LEADS LEFT VENTRICULAR HYPERTROPHY BASELINE ARTIFACT- I, II, III, AVR, AVL, AVF, V1-V6 BORDERLINE ECG No previous ECG available for comparison Electronically Signed On 07-07-2024 13:13:29 CDT by Carlos Nguyen D.O.
--- OUTSIDE RECORDS SUMMARY | 2024-07-07 12:58 | XMS_ITS | Clinical Summary ---
Author Organization [facility] Address [address] [place] [address] Care Team Providers Care Cmm Inspector Name Role Phone Kvng Snider MD Primary Care Provider [phone] Jose Schuler MD Unavailable [phone] Allergies Active Allergy Reactions Criticality Noted Date Comments Levofloxacin Rash Low 03/09/2019 Medications carvedilol 12.5 MG tablet Take 1 tablet (12.5 mg total) by mouth 2 (two) times daily. Active febuxostat 40 MG tablet Take 1 tablet (40 mg total) by mouth daily. Active lisinopril 40 MG tablet Take 1 tablet (40 mg total) by mouth daily. Active amlodipine 10 MG tablet Take 1 tablet (10 mg total) by mouth daily. Active omeprazole 20 MG capsule Take 1 capsule (20 mg total) by mouth daily. Active cloNIDine (CATAPRES) 0.1 MG tablet Take 1 tablet (0.1 mg total) by mouth every 6 (six) hours as needed. Active diclofenac EC (VOLTAREN) 75 MG tablet Take 1 tablet (75 mg total) by mouth 2 (two) times daily as needed. Active tamsulosin (FLOMAX) 0.4 MG Cap Take 1 capsule (0.4 mg total) by mouth nightly. Active nitroglycerin (NITROSTAT) 0.[address] 1 tablet (0.4 mg total) under the tongue every 5 (five) minutes as needed for Chest Pain. Active Active Problems Problem Noted Date Diagnosed Date SOB (shortness of breath) 07/23/2023 Chest heaviness 07/23/2023 Urinary frequency 03/09/2019 Nocturia 03/09/2019 Stranguria 03/09/2019 Urgency of urination 03/09/2019 Family History Medical History Relation Comments bladder cancer Mother Relation Status Comments Mother Social History Tobacco Use Types Packs/Day Years Used Date Smoking Tobacco: Former Smokeless Tobacco: Never Alcohol Use Standard Drinks/Week Comments Yes 0 (1 standard drink = 0.6 oz pur e alcohol) Sex and Gender Information Value Date Recorded Sex Assigned at Not on file Legal Sex Male 1:21 AM CDT Gender Identity Not on file Sexual Orientation Not on file Last Filed Vital Signs Vital Sign Reading Time Taken Comments Blood Pressure 122/68 07/23/2023 1:58 PM CDT Pulse 60 07/23/2023 1:58 PM CDT ekg Temperature - - Respiratory Rate 18 07/23/2023 1:58 PM CDT Oxygen Saturation 96% 07/23/2023 1:58 PM CDT Inhaled Oxygen Concentration - - Weight 95.3 kg (210 lb 3.2 oz) 07/23/2023 1:58 P M CDT Height 172.7 cm (5' 8 ) 07/23/2023 1:58 PM CDT Body Mass Index 31.96 07/23/2023 1:58 PM CDT Plan of Treatment Health Maintenance Due Date Last Done Comments ASCVD Statin 1950 Colorectal Cancer Screening Colonoscopy (10 Years) 1950 Zoster Vaccines (1 of 2) 10/07/1999 RSV Immunization or 60+ Years (1 - Risk 60-74 years 1-dose series) 2009 AAA SCREENING 2014 Annual Medicare Wellness Visit 2014 COVID-19 Vaccine (4 - 2023-2 5 season) 2023 01/13/2021, 06/02/2020, 05/13/2020 DTaP, Tdap and Td Vaccines ( 2 - Td or Tdap) 05/26/2028 05/26/2018 Hepatitis C Completed 09/09/2014 Pneumococcal Vaccine: 50+ Years Completed 02/01/2020, 12/12/2018 Meningococcal B Vaccine Aged Out No l onger eligible based on patient's age to complete this topic Meningococcal Vaccine Aged Out No conrad silvina eligible based on patient's age to complete this topic RSV Immunizations Under 20 Months Aged Out No longer eligible b ased on patient's age to complete this topic Procedures Procedure Name Priority Date/Time Associated Diagnosis Comments HEPATITIS PANEL,ACUTE Routine 09/09/2014 9:24 AM CDT from Last 3 Months or Most Recently Relevant to Health Maintenance Results * HEPATITIS PANEL,ACUTE (09/09/2014 9:24 AM CDT) HAV IGM NON-REACTIVE NON-REACT JULIA [facility] TO EPIC CONVERSION HEPATITIS B SURFACE AG NON-REACTIVE NON-REACT JULIA [facility] TO EPIC CONVERSION HEP B CORE IGM NON-REACTIVE NON-REACT JULIA [facility] TO EPIC CONVERSION HEPATITIS C AB NON-REACTIVE NON-REACT JULIA [facility] TO EPIC CONVERSION SIGNAL TO CUTOFF 0.01 <1.00 [facility] TO EPIC CONVERSION Comment:SMILEY DAMIAN DO,MP H REPORT STATUS Not required [facility] TO EPIC CONVERSION Comment: THIS TEST WAS PERFORMED AT [facility] [address] [place] [id number] 09/09/2014 9:24 AM CDT 09/09/2014 9:24 AM CDT Narrative [facility] TO EPIC CONVERSION - 09/13/2014 7:58 AM CDT This lab was migrated from [facility] and may be missing annotations or result text, please check the Media tab for the most complete results. Kvng Snider MD LABORATORY Final Result [facility] TO EPIC CONVERSION from Last 3 Months or Most Recently Relevant to Health Maintenance Insurance [employer] Care Teams Cmm Inspector Relationship Specialty Start Date End Date Kvng Snider MD [address] [place] [id number] PCP - General PEDIATRICS 03/03/19 Jose Schuler MD [address] [address] Physician INTERVENTIONAL CARDIOLOGY 10/21/23
[2024-07-07 13:09] LABS: Hematocrit 43.6 % (42.0-52.0); Hemoglobin 14.6 g/dL (14.0-18.0); Mean Corpuscular HGB Conc 33.5 g/dl (32-36); Mean Corpuscular Hemoglobin 28.7 pg (26-34); Mean Corpuscular Volume 85.7 fl (80-100); Mean Platelet Volume 9.7 fl (7.4-10.4); Platelet Count Result 206 k/mm3 (150-375); Red Blood Count 5.09 M/mm3 (4.6-6.20); Red Cell Distribution Width 13.7 % (11.5-14.5)
[2024-07-07 13:11] LABS: Add Urine Microscopic? YES; Appearance Urine Clear (Clear); Bilirubin Urine Negative (Negative); Blood Urine Negative (Negative); Color Urine Dark Yellow (Yellow); Glucose Urine UA Negative (Negative); Ketones Urine Trace mg/dL (Negative); Leukocyte Esterase Ur Negative LEU/UL (Negative); Nitrate Urine Negative (Negative); Protein Urine Negative (Negative); Specific Grav Ur 1.021 (1.001-1.035); pH Urine 5.5 (5.0-9.0)
[2024-07-07 13:20] LABS: Anion Gap 9 mmol/L (4-12); Blood Urea Nitrogen 14 mg/dL (9-20); Calcium 8.6 mg/dL (8.4-10.2); Carbon Dioxide 23 mmol/L (22-30); Chloride 105 mmol/L (98-107); Estimated Glomerular Filt Rate > 60; Glucose 85 mg/dL (65-110); Potassium 4.2 mmol/L (3.4-5.0); Sodium 137 mmol/L (137-145)
[2024-07-07 13:31] LABS: INR 1.1
== END 2024-07-07 11:40 | disposition home or self-care (01) ==
LOC: ANHSURGERY 11:48
PROVIDERS: PCP Pediatrics; Visit Provider Neurological Surgery
DX: Z01.818 Encounter for other preprocedural examination (principal); M48.062 Spinal stenosis, lumbar region with neurogenic claudication; I44.0 Atrioventricular block, first degree; I11.9 Hypertensive heart disease without heart failure
CPT/HCPCS: 36415; 80048; 81001; 85027; 85610; 85730; 93005

== ENCOUNTER 2024-07-21 00:55 | Day surgery (SDC) | payer MEDICARE, SELFPAY ==
--- NOTE | 2024-07-07 11:32 | PC.NURSE ---
Report to the Outpatient Waiting Room, entrance under the green pavilion located off [facility], at time ___11:00AM____ on date ___07/21/24____. Planned Procedure Time: __1:00PM .? Time changes happen often and if your time is changed the preop area will call you the afternoon before. - You and your visitor will be asked to self-screen and do not enter if you have any COVID symptoms. Please call surgeon if you need to reschedule. - A mask is optional within the hospital at this time. Patients may have clear liquids (water, carbonated beverages, clear teas, apple juice) until 3 hours prior to surgery with a maximum of 20 ounces. - No food from midnight until time of surgery and no smoking, or chewing tobacco (or any form of nicotine). No chewing gum, candy or mints. Take only the following medications with a SIP of water on the morning of surgery: ___AMLODIPINE AND CARVEDILOL. MAY TAKE HYDROCODONE NEEDED FOR PAIN. DO NOT STOP ANY OF YOUR OTHER PRESCRIPTION MEDICATIONS PRIOR TO SURGERY EXCEPT THE FOLLOWING Medications to discontinue per physician __HOLD DICLOFENAC PER DR CESPEDES Date to take last dose Please no make-up, nail greek, hairspray, perfume, deodorant, or body powder the day of surgery.? No jewelry (including any body piercings) or valuables the day of surgery, leave them at home.? Please take a shower or bath the night before, or the morning of, surgery with an antibacterial soap.? Wear comfortable, loose fitting clothing.? - Jewelry must be removed prior to entering the operating room.? Rings and piercings that are not removed may be cut off. - The hospital will not accept responsibility for valuables.? - Please leave all valuables, including medications, at home the day of surgery. If you are going home after surgery, a licensed commercial driver's license driver must drive you home.? - NO public transportation without another adult if you receive anesthesia. - We recommend that an adult stay with you for 24 hours following discharge. - We also recommend that you do not drive, make important decision, drink alcoholic beverages, or take any drugs that were not prescribed by your health care provider for at least 24 hours after your discharge time. Follow any additional instructions given to you from your surgeon. Telephone instructions given to ____PATIENT and asked if any additional questions and then verbalized understanding. Patient advised to call surgeon office or pre surgery nurse liaison [phone] if any additional questions.
[2024-07-07 11:57] VITALS: BP 143/71; PULSE 65; RESP 16; TEMP 36.8; O2SAT 97; BMI 31.5
[2024-07-21] VITALS (13 sets, daily range): BP systolic 105–150; BP diastolic 46–93; PULSE 51–75; RESP 12–20; TEMP 36.2–36.8; O2SAT 93–100
--- NOTE | ~2024-07-21 | XR_ITS ---
EXAMINATION: XR fluoroscopy no charge DATE: 07/21/2024 16:00 CDT INDICATION: L4/5 LUMBAR LAMINECTOMY . TECHNIQUE: 1 fluoroscopic image of the lumbar spine were obtained during L4-5 lumbar laminectomy, per formed by Eliezer Guerra MD. I was not present during the procedure. Fluoroscopy exposure time wa s 1.3 seconds. Air Kerma 0.2725 mGy. DAP 0.0540 mGym2. COMPARISON: None FINDINGS/IMPRESSION: Fluoroscopic documentation of L4-5 lumbar laminectomy. Please refer to the operative note for complet e procedural details . Reviewed, dictated and finalized at location K.
--- OUTSIDE RECORDS SUMMARY | 2024-07-21 01:00 | XMS_ITS | Clinical Summary ---
Author Organization [facility] Address [address] [place] [address] Phone Care Team Providers Care Secondary School Registrar Name Role Phone Kvng Snider MD Primary Care Provider [phone] Allergies No known active allergies Medications omeprazole (PRILOSEC) 20 MG CAPSULE DELAYED RELEASE 09/03/2016 Active carvedilol (COREG) 12.5 MG Tablet 08/30/2016 Active amLODIPine (NORVASC) 10 MG Tablet 08/01/2016 Active predniSONE (DELTASONE) 10 MG Tablet 07/09/2016 Active fluticasone (CUTIVATE) 0.05 % Cream Apply 1 Film as needed (itching). 1 Tube 09/18/2016 Active Active Problems No known active problems Social History Tobacco Use Types Packs/Day Years Used Date Smoking Tobacco: Never Sex and Gender Information Value Date Recorded Sex Assigned at Not on file Legal Sex Male 2:19 AM CDT Gender Identity Not on file Sexual Orientation Not on file Last Filed Vital Signs Vital Sign Reading Time Taken Comments Blood Pressure 180/90 09/18/2016 10:36 AM CDT Pulse - - Temperature - - Respiratory Rate - - Oxygen Saturation - - Inhaled Oxygen Concentration - - Weight 95.7 kg (211 lb) 09/18/2016 10:36 AM CDT Height 174 cm (5' 8.5 ) 09/18/2016 10:36 AM CDT Body Mass Index 31.62 09/18/2016 10:36 AM CDT Plan of Treatment Health Maintenance Due Date Last Done Comments Hepatitis C Virus (HCV) Screening 1950 TdaP Immunization 1950 Colonoscopy 1994 Colorectal Cancer Screening 1994 Cologuard 10/07/1999 Immunochemical Fecal Occult Blood 10/07/1999 Pneumococcal Immunization (5 0+ years) (1 of 1 - PCV) 10/07/1999 Zoster Immunization (1 of 2) 10/07/1999 Influenza Immunization (#1) 2023 SARS-COV-2 Immunization ( - 2023- season) 2023 Respiratory Syncytial Virus (RSV) Immunization (Adult) (1 - 1-dose 75+ series) 2024 Hepatitis B Immunization Aged Out No longer eligible based on patient's age to complete this topic Meningococcal Immunization (ACWY) Aged Out No longer eligible based on patient's age to complete this topic Rotavirus Immunization Aged Out No lo nger eligible based on patient's age to complete this topic [place] [address] [place] [address] MEDICARE Care Teams Secondary School Registrar Relationship Specialty Start Date End Date Kvng Snider MD [address] [place] [address] PCP - General Pediatrics 09/06/16
--- OUTSIDE RECORDS SUMMARY | 2024-07-21 01:00 | XMS_ITS | Clinical Summary ---
Author Organization [facility] Address [address] [place] [address] Care Team Providers Care Contact Center Assistant Name Role Phone Kvng Snider MD Primary Care Provider + [phone] Jose Schuler MD Unavailable [phone] Allergies Active Allergy Reactions Criticality Noted Date [...] CONVERSION Comment: THIS TEST WAS PERFORMED AT [facility] [address] [place] [id number] 09/09/2014 9:24 AM CDT 09/09/2014 9:24 AM CDT Narrative [facility] TO EPIC CONVERSION - 09/13/2014 7:58 AM CDT This lab was migrated from [facility] and may be missing annotations or result text, please check the Media tab for the most complete results. Kvng Snider MD LABORATORY Final Result [facility] TO EPIC CONVERSION from Last 3 Months or Most Recently Relevant to Health Maintenance Insurance [employer] Care Teams Contact Center Assistant Relationship Specialty Start Date End Date Kvng Snider MD [address] [place] [id number] PCP - General PEDIATRICS 03/03/19 Jose Schuler MD [address] [address] Physician INTERVENTIONAL CARDIOLOGY 10/21/23
--- NOTE | 2024-07-21 13:09 | PM.IMHP ---
H&P: HPI History of Present Illness Date/Time: 07/21/24 13:09 Chief Complaint: Back and leg pain Narrative: Jerry is a 73-year-old gentleman who is known to me for problems related to his neck presents now with progressive issues relating to his left lower extremity. When he 1st stands to walk he has trouble bearing weight on the left side because of pain that radiates into his groin. This persists as he goes any limps on the left leg. While his back is somewhat uncomfortable this is baseline for him. He sometimes has discomfort that radiates nonspecifically down both lower extremities right greater than left. This may become worse with significant activity or being upright and walking. It is more difficult for him to remember has this other pain is more significant. He does not report specific muscle group weakness or dermatomal numbness in either lower extremity. The pain is severe and limiting for him and he underwent an MRI evaluation. He does not report bowel or bladder difficulty. The discomfort has been going on for several months. It started in late summer, early fall. It has not gotten better. It has not been treated in any particular way thus far. Review of Systems Review of Systems: All systems reviewed & are unremarkable except as noted in HPI and below Denies chills, Denies fever, Denies weight gain and Denies weight loss Eyes Denies change in vision and Denies diplopia ENT Denies disequilibrium Card Denies chest pain and Denies dyspnea Resp Denies cough and Denies dyspnea GI Denies abdominal pain, Denies change in bowel habits, Denies fecal incontinence and Denies vomiting Denies hematuria, Denies oliguria, Denies difficulty urinating, Denies dysuria, Denies urinary frequency, Denies urinary hesitancy, Denies urinary incontinence and Denies urinary urgency Musc Reports as per HPI Skin/ Breast Reports system reviewed and no additional complaints, except as documented Neuro Reports as per HPI Psych Reports no additional complaints, Denies depression and Denies hopelessness Endo Reports no additional complaints and Denies polyuria Khari/ Lymph Reports no additional complaints Aller/ Immun Reports no additional complaints PMF Past Medical History Medical History Cervical spondylosis Obesity Spinal stenosis Osteoarthritis Chronic GERD HTN (hypertension) Surgical History Surgical History Total knee replacement status History of cervical discectomy Family History Family History Other Depression Diabetes mellitus Heart disease Social History Social History Smoking packs per day: 1 Smoking cigarettes per day: 20.0 Years smoked: 30 Smoking pack-years: 30.00 Smoking status: Former smoker Tobacco type: cigarettes Smoking end date: 09/22/74 Alcohol intake: never Substance use: never Living arrangements: with family Additional living arrangements comments: Spiritual care concerns: No Meds Home Medications and Allergies Home Medications ?Medication ?Instructions ?Recorded ?Confirmed ?Type amlodipine 10 mg tablet 1 tablet PO QAM 08/16/21 07/07/24 History carvedilol 12.5 mg tablet 1 tablet PO BID 08/16/21 07/07/24 History diclofenac sodium 75 mg 1 tablet PO Q12H 08/16/21 07/07/24 History tablet,delayed release febuxostat 40 mg tablet 40 mg PO QAM 08/16/21 07/07/24 History lisinopril 40 mg tablet 1 tablet PO QAM 08/16/21 07/07/24 History omeprazole 20 mg capsule,delayed 1 cap PO HS 08/16/21 07/07/24 History release psyllium husk 3.4 gram/5.4 gram 1 tbsp PO DAILY 08/16/21 07/07/24 History oral powder (Metamucil) hydrocodone 5 mg-acetaminophen 325 1 tablet PO Q6-8H PRN pain 07/07/24 07/07/24 History mg tablet tamsulosin 0.4 mg capsule 0.4 mg PO HS 07/07/24 07/07/24 History Allergies Allergy/AdvReac Type Severity Reaction Status Date / Time No Known Allergies Allergy Verified 07/07/24 11:53 Exam Narrative: General: cooperative, no acute distress, well developed, alert and awake Orientation/Consciousness: oriented to person, oriented to place and oriented to time Constitutional Limitations: no limitations Other: The patient is a normally developed, normal appearing male sitting on the examination table in no acute distress. He is awake, alert, and oriented x3 with good fund of knowledge, recall of events, and fluent speech. [facility] Head: normocephalic and atraumatic Ears: external ears normal Face/Nose/Sinus: Normal external nose present Eyes Eyelids: eyelids normal Pupils: Yes Pupils normal by confrontation EOM: EOMs intact bilaterally Neck General: Yes no meningeal signs, Yes supple and Yes no JVD Resp Effort/Inspection: normal respiratory effort and able to speak in complete sentences Cardio Rate: Yes regular rate GI Inspection: No abdominal distension Musc Other: Examination of the back reveals no tenderness. Range of motion of the back is limited in all planes secondary to stiffness. Straight leg raise is negative bilaterally. Daniel?s test is positive on the left. Skin General: normal color Neuro General: Yes oriented to person, Yes oriented to place, Yes oriented to time, Yes normal cognition and Yes no meningeal signs Cranial Nerves: Yes CN's II-XII intact bilaterally Other: Motor: Strength is normal, 5/5, throughout all muscle groups of the bilateral upper and lower extremities to direct confrontation. Sensory: Sensation is intact to light touch throughout the upper and lower extremities bilaterally. Reflexes: deep tendon reflexes are difficult to elicit at the knees or ankles bilaterally. There is no clonus. Gait: Gait, station, and transfers are independent and steady for short periods of time and over short distances. he limps on the left leg. Psych Appearance: grossly normal Mental status: Yes mental status grossly normal Mood: congruent mood Affect: Yes normal affect Speech/Movement: Normal speech and movement present Attitude: Yes cooperative Thought Content: Normal thought content present Review of studies: MRI of the lumbar spine was personally reviewed by me and demonstrates slight listhesis at L4-5 with central canal and lateral recess stenosis right greater than left. There is also significant spondylosis at that level. Otherwise there is background degeneration of the discs and facets without any significant central canal or neural foraminal narrowing at any other level. Assessment and Plan Assessment and plan (1) Spinal stenosis: Code(s): M48.00 - Spinal stenosis, site unspecified Status: Acute Plan With regards to the lumbar spine I recommend laminectomy only at L4-5 and I described to him that operation, its risks, potential benefits, the operative and postoperative course in detail and answered all his questions personally. We discussed risks including but not limited to permanent neurologic deficit secondary to nerve root injury, need for reoperation secondary to infection, bleeding, CSF leak, adjacent level disease, recurrent or residual pathology or instability, failure of the procedure to relieve his pain or symptoms, persistent pain, medical complications related to anesthesia or surgery, etc.. He indicates understanding and elects to proceed with the operation.
--- NOTE | 2024-07-21 13:12 | WPDHPUPDATE1 ---
History and Physical Update Update Date/Time: 07/21/24 13:12 History and Physical has been reviewed, including an updated exam of the patient. There are NO changes in the patient's condition. Risks, benefits, and alternatives have been discussed and questions answered. Patient agrees to proceed with procedure.
[2024-07-21] MEDS: LACTATED RINGERS 1,000 ML 30 ML IV CONT ×2 (14:00→16:57)
--- NOTE | 2024-07-21 14:20 | WPDANESEPPF ---
Anes - Initial Pre Proc Eval Procedure: Operation Date: 07/21/24 15:00 Proposed Procedures p L4-5 Lumbar Laminectomy - Eliezer Guerra MD Date/Time: 07/21/24 14:20 Surgeon: Eliezer Guerra MD Pre Op Diagnosis: L4-5 stenosis Patient Data Age: 73 Gender: M Height: 1.73 m Weight: 91.2 kg Last Vital Signs Temp 97.2 F L 07/21/24 14:03 Pulse 51 L 07/21/24 14:03 Resp 14 07/21/24 14:03 BP 149/69 H 07/21/24 14:03 Pulse Ox 99 07/21/24 14:03 O2 Del Method Room Air 07/21/24 14:03 Allergies Allergy/AdvReac Type Severity Reaction Status Date / Time No Known Allergies Allergy Verified 07/21/24 13:56 Home Medications ?Medication ?Instructions ?Recorded ?Confirmed ?Type amlodipine 10 mg tablet 1 tablet PO QAM 08/16/21 07/21/24 History carvedilol 12.5 mg tablet 1 tablet PO BID 08/16/21 07/21/24 History diclofenac sodium 75 mg 1 tablet PO Q12H 08/16/21 07/21/24 History tablet,delayed release febuxostat 40 mg tablet 40 mg PO QAM 08/16/21 07/07/24 History lisinopril 40 mg tablet 1 tablet PO QAM 08/16/21 07/21/24 History omeprazole 20 mg capsule,delayed 1 cap PO HS 08/16/21 07/07/24 History release psyllium husk 3.4 gram/5.4 gram 1 tbsp PO DAILY 08/16/21 07/07/24 History oral powder (Metamucil) hydrocodone 5 mg-acetaminophen 325 1 tablet PO Q6-8H PRN pain 07/07/24 07/21/24 History mg tablet tamsulosin 0.4 mg capsule 0.4 mg PO HS 07/07/24 07/07/24 History Patient hx anesthesia problems: post op nausea/vomiting Family hx anesthesia problems: none Results Review: All pre-operative results and documents have been reviewed as part of the pre-operative evaluation. [facility] Past Medical History Medical History Cervical spondylosis Obesity Spinal stenosis Osteoarthritis Chronic GERD HTN (hypertension) Surgical History Surgical History Total knee replacement status History of cervical discectomy Family History Family History Other Depression Diabetes mellitus Heart disease Social History Social History Smoking packs per day: 1 Smoking cigarettes per day: 20.0 Years smoked: 30 Smoking pack-years: 30.00 Smoking status: Former smoker Tobacco type: cigarettes Smoking end date: 09/22/74 Alcohol intake: never Substance use: never Living arrangements: with family Additional living arrangements comments: Spiritual care concerns: No Anes - Eval Final PreProcedure Day of Procedure 07/21/24 14:20 Patient weight: normal Heart: regular rate and rhythm Lungs: clear to auscultation Airway: Mallampati scale class III Neurological: alert and oriented Last oral intake: >/= 8 hours ASA classification: III Emergent: no Anesthetic plan: proceed Anesthesia type and monitoring: general ETT (use glide scope intubation) and standard monitoring Results Review: All pre-operative results and documents have been reviewed as part of the pre-operative evaluation. Informed Consent: The patient's anesthetic plan and its attendant risks and benefits were discussed with the patient/family/POA. Questions were solicited and answers provided to the satisfaction of the patient/family/POA.
[2024-07-21] MEDS: fentaNYL CITRATE INJ (*CRX) 100 MCG/2 ML VIAL 50 MCG IV PUSH (14:25)
[2024-07-21] MEDS: ceFAZolin 2 GM/D5W 50 ML 2 GM/50 ML BAG IVPB (15:40)
[2024-07-21] MEDS: LIDO 1%/EPINEPHRINE 1:100,000 20 ML VIAL 10 ML INFILTRATE (16:14)
--- NOTE | 2024-07-21 16:56 | W.PM.PROC2 ---
Procedure Note - Detailed Date of Procedure 07/21/24 Pre-op Diagnosis L4-5 stenosis Post-op Diagnosis Same Procedure Performed L3-4 laminectomy Surgeon Eliezer Guerra MD Anesthesia General Description of Procedure Patient was brought to the operating room in the supine position, was sedated, intubated placed under general anesthesia in routine fashion. She was then turned into the prone position on a Santo frame. The operation on his back was examined, marked for incision, prepped and draped in routine sterile fashion. Incision was marked over the L4-L5 spinous processes in the midline. This area was injected with 0.5% lidocaine with [id number] epinephrine. Intravenous antibiotics given prior to incision. Incision was made with a 10 blade scalpel down to the lumbodorsal fascia. A subperiosteal dissection of the muscle soft tissue away from spinous process and lamina was performed with a subperiosteal elevator and Bovie cautery. A verifying x-rays obtained to verify the level of operation. At L4-L5 the spinous processes were removed with a Yobany rongeur. Midas Johan drill with an [place] bit was used to thin the lamina in the midline until the soft contents of the canal were encountered. Kerrison punches and curved curettes were used to define a plane with the dura and removed bone and ligament in the midline exposing the dura. In the lateral recess a curved curette was used to define a plane with the dura. Kerrison punches were used to remove overgrown bone and ligament in the lateral recess. This was performed until a dental instrument could be placed in the lateral recess to confirm lack of compression bilaterally. Wound was then copiously irrigated with bacitracin irrigation all bleeding stopped with bipolar and Bovie cautery and Gelfoam thrombin powder. The wound was then closed in layered fashion with 2-0 Vicryl interrupted sutures in the lumbodorsal fascia and Bhupinder's layer. 3-0 Vicryl buried interrupted sutures were placed in the dermis and the skin was closed with a running 4-0 Monocryl subcuticular stitch and dressed Dermabond. A medium Hemovac drain left in the subfascial position and carried out to the inferior right of the incision prior to closure. Patient was allowed to wake up in the operating room was taken to the recovery room in stable condition. There were no immediate complications of this operation. All counts reported correct at the end of the case. Blood loss was 50 cc. The patient was neurologically his baseline postoperatively. CPT codes: 57059, 50328
[2024-07-21] MEDS: fentaNYL CITRATE INJ (*CRX) 100 MCG/2 ML VIAL 25 MCG IV PUSH ×7 (17:05→17:48)
--- NOTE | 2024-07-21 18:30 | ADMGEN ---
This patient, Jerry Munroe, was admitted to [facility] Surg Room 327-01. Patient/family oriented to hospital policies and general routines including ID bracelet, bed and alarms, visiting hours, pain management, procedures, bathroom and other care routines, personal items, smoking policy, room service/diet, and visiting hours. Information on how to activate the Rapid Response Team has been discussed. Patient/Family are encouraged to report perceived risks to care and to ask questions if they do not understand what they are told or what they should do.
[2024-07-21] MEDS: TAMSULOSIN HCL 0.4 MG CAPSULE PO (21:06)
[2024-07-21] MEDS: PANTOPRAZOLE 40 MG TABLET PO (21:07)
[2024-07-21] MEDS: KCL 20 MEQ/D5/0.45% SOD CHL 1,000 ML 100 ML IV CONT (21:07)
[2024-07-21] MEDS: carvediloL 12.5 MG TABLET PO (21:07)
[2024-07-21] MEDS: MORPHINE SULFATE (*CRX) 2 MG/ML INJ IV PUSH (21:07)
[2024-07-21] MEDS: DOCUSATE SODIUM 100 MG CAPSULE PO (21:07)
[2024-07-21] MEDS: ceFAZolin 1 GM/NS 50 ML 1 GM/50 ML BAG IVPB (21:08)
[2024-07-21] MEDS: HYDROcodone/acetaminophen (*CRX) 5-325 MG TABLET 1 TAB PO (22:05)
[2024-07-22] MEDS: MORPHINE SULFATE (*CRX) 2 MG/ML INJ IV PUSH ×2 (00:42→05:58)
[2024-07-22 03:26] VITALS: BP 145/77; PULSE 76; RESP 18; TEMP 36.7; O2SAT 95
[2024-07-22] MEDS: ceFAZolin 1 GM/NS 50 ML 1 GM/50 ML BAG IVPB ×2 (05:52→13:19)
[2024-07-22 08:31] VITALS: PULSE 60
[2024-07-22] MEDS: amLODIPine BESYLATE 10 MG TABLET PO (08:31)
[2024-07-22] MEDS: carvediloL 12.5 MG TABLET PO (08:31)
[2024-07-22] MEDS: PSYLLIUM POWDER PACKET 1 PACKET PO (08:31)
[2024-07-22] MEDS: lisinopriL 20 MG TABLET 40 MG PO (08:31)
[2024-07-22] MEDS: FEBUXOSTAT 40 MG TABLET PO (08:31)
[2024-07-22] MEDS: DOCUSATE SODIUM 100 MG CAPSULE PO (08:32)
[2024-07-22] MEDS: HYDROcodone/acetaminophen (*CRX) 10-325 MG TABLET 1 TAB PO (08:39)
[2024-07-22 09:19] VITALS: BP 140/65; PULSE 66; RESP 16; TEMP 37; O2SAT 96
--- OUTSIDE RECORDS SUMMARY | 2024-07-22 12:58 | XMS_ITS | Clinical Summary ---
Author Organization [facility] Address [address] [place] [address] Phone Care Team Providers Care Dairy Grazer Name Role Phone Kvng Snider MD Primary Care Provider [phone] Allergies No known active allergies Medications omeprazole [...] patient's age to complete this topic [place] [address] [place] [address] MEDICARE Care Teams Dairy Grazer Relationship Specialty Start Date End Date Kvng Snider MD [address] [place] [address] PCP - General Pediatrics 09/06/16
--- OUTSIDE RECORDS SUMMARY | 2024-07-22 12:58 | XMS_ITS | Clinical Summary ---
Author Organization [facility] Address [address] [place] [address] Care Team Providers Care Toilet Attendant Name Role Phone Kvng Snider MD Primary Care Provider + [phone] Jose Schuler MD Unavailable [phone] Allergies Active Allergy Reactions Criticality Noted Date [...] CONVERSION Comment: THIS TEST WAS PERFORMED AT [facility] [address] [place] [address] 09/09/2014 9:24 AM CDT 09/09/2014 9:24 AM CDT Narrative [facility] TO EPIC CONVERSION - 09/13/2014 7:58 AM CDT This lab was migrated from [facility] and may be missing annotations or result text, please check the Media tab for the most complete results. Kvng Snider MD LABORATORY Final Result [facility] TO EPIC CONVERSION from Last 3 Months or Most Recently Relevant to Health Maintenance Insurance [employer] Care Teams Toilet Attendant Relationship Specialty Start Date End Date Kvng Snider MD [address] [place] [address] PCP - General PEDIATRICS 03/03/19 Jose Schuler MD [address] [address] Physician INTERVENTIONAL CARDIOLOGY 10/21/23
[2024-07-22] MEDS: ONDANSETRON HCL ODT 4 MG TABLET PO (13:19)
[2024-07-22 13:24] VITALS: BP 133/64; PULSE 64; RESP 18; O2SAT 97
--- NOTE | 2024-07-22 14:21 | WPDNEUROSGPN ---
Progress Note: A&P Assessment and Plan (1) Lumbar stenosis with neurogenic claudication: Code(s): M48.062 - Spinal stenosis, lumbar region with neurogenic claudication Status: Acute Assessment and Plan: Assessment: Doing well postop day 1 from L3-L4 laminectomy with Dr. Guerra. plan: - Discussed with priscila Thomas for discharge - outpatient follow-up as scheduled Subjective Date/time seen: 07/22/24 14:21 Interval history: POD 1 L3-L4 laminectomy by Dr. Guerra. reports doing well. Preoperative symptoms essentially resolved. Does have back pain but well controlled with medications. Worked with PT. Wants to go home. Resting comfortably in bed. at bedside. Exam Narrative: Patient awake and resting comfortably. A&O x4. Incision clean, dry, intact. Full strength and lower extremity sensation. No abdominal distension. Objective Data Vital Signs Vital Signs: Vital Signs - 24 hr 07/21/24 16:57 07/21/24 17:05 07/21/24 17:20 Temperature 98.2 F Pulse Rate 75 70 70 Respiratory Rate 17 12 20 Blood Pressure 143/77 H 131/76 133/70 Pulse Oximetry 99 100 98 Oxygen Delivery Simple Face Mask Simple Face Mask Room Air Oxygen Flow Rate 8 8 07/21/24 17:35 07/21/24 17:50 07/21/24 18:05 Temperature Pulse Rate 70 69 69 Respiratory Rate 18 16 20 Blood Pressure 145/81 H 137/69 138/68 Pulse Oximetry 97 95 94 Oxygen Delivery Room Air Room Air Room Air Oxygen Flow Rate 07/21/24 18:15 07/21/24 18:45 07/21/24 19:42 Temperature 98.2 F 97.2 F L Pulse Rate 70 59 L 70 Respiratory Rate 15 18 16 Blood Pressure 105/93 H 137/68 150/80 H Pulse Oximetry 95 93 93 Oxygen Delivery Room Air Oxygen Flow Rate 07/21/24 20:15 07/21/24 21:20 07/21/24 23:20 Temperature 97.3 F L 98.0 F 97.5 F L Pulse Rate 61 64 61 Respiratory Rate 16 16 16 Blood Pressure 137/46 L 126/71 148/74 H Pulse Oximetry 94 93 95 Oxygen Delivery Oxygen Flow Rate 07/22/24 03:26 07/22/24 08:31 07/22/24 09:19 Temperature 98.0 F 98.6 F Pulse Rate 76 60 66 Respiratory Rate 18 16 Blood Pressure 145/77 H 140/65 Pulse Oximetry 95 96 Oxygen Delivery Oxygen Flow Rate 07/22/24 12:14 07/22/24 13:24 Temperature Pulse Rate 64 Respiratory Rate 18 Blood Pressure 133/64 Pulse Oximetry 97 Oxygen Delivery Room Air Oxygen Flow Rate Intake/Output Intake/Output: Intake & Output 07/19/24 07/20/24 07/21/24 07/22/24 23:59 23:59 23:59 23:59 Intake Total 300 1727 Output Total 20 150 Balance 280 1577 Meds/Results Medications: Active Medications Generic Name Dose Route Start Last Admin Trade Name Freq PRN Reason Stop Dose Admin Hydrocodone Bitart/Acetaminophen 1 tab 07/21/24 18:19 07/21/24 22:05 Hydrocodone/Acetaminophen (*Crx) 5-325 Mg Tablet PO 1 tab Q4H PRN Administration Mild Pain (1-3) Hydrocodone Bitart/Acetaminophen 1 tab 07/21/24 18:19 07/22/24 08:39 Hydrocodone/Acetaminophen (*Crx) 10-325 Mg Tablet PO 1 tab Q4H PRN Administration Moderate Pain (4-6) Al Hydrox/Mg Hydrox/Simethicone 20 ml 07/21/24 18:19 Mag Hydrox/Al Hydrox/Simeth 30 Ml Udc PO Q4H PRN Indigestion/Heartburn Amlodipine Besylate 10 mg 07/22/24 09:00 07/22/24 08:31 Amlodipine Besylate 10 Mg Tablet PO 10 mg QAM ZULEMA Administration Bisacodyl 10 mg 07/21/24 18:19 Bisacodyl 10 Mg Suppository RECTAL DAILY PRN Constipation Carvedilol 12.5 mg 07/21/24 21:00 07/22/24 08:31 Carvedilol 12.5 Mg Tablet PO 12.5 mg Q12HR ZULEMA Administration Cyclobenzaprine HCl 10 mg 07/21/24 18:19 Cyclobenzaprine Hcl 10 Mg Tablet PO TID PRN Muscle Spasms Docusate Sodium 100 mg 07/21/24 21:00 07/22/24 08:32 Docusate Sodium 100 Mg Capsule PO 100 mg Q12HR UZLEMA Administration Febuxostat 40 mg 07/22/24 09:00 07/22/24 08:31 Febuxostat 40 Mg Tablet PO 40 mg QAM ZULEMA Administration Cefazolin Sodium 1 gm in 50 mls @ 100 mls/hr 07/21/24 22:00 07/22/24 13:19 Ancef 1 Gm/Ns 50 Ml IVPB 100 mls/hr Q8H ZULEMA Administration Potassium Chloride/Dextrose/Sod Cl 1,000 mls @ 100 mls/hr 07/21/24 18:19 07/22/24 05:20 Kcl 20 Meq/D5/0.45% Sod Chl IV CONT Not Given .Q10H ZULEMA Lisinopril 40 mg 07/22/24 09:00 07/22/24 08:31 Lisinopril 20 Mg Tablet PO 40 mg QAM ZULEMA Administration Morphine Sulfate 2 mg 07/21/24 18:19 07/22/24 05:58 Morphine Sulfate (*Crx) 2 Mg/Ml Inj IV PUSH 2 mg Q2H PRN Administration Pain Rated 7-10 Ondansetron HCl 4 mg 07/22/24 13:09 07/22/24 13:19 Ondansetron Hcl Odt 4 Mg Tablet PO 4 mg Q8H PRN Administration Nausea And Vomiting Pantoprazole Sodium 40 mg 07/21/24 21:00 07/21/24 21:07 Pantoprazole 40 Mg Tablet PO 40 mg HS ZULEMA Administration Psyllium Hydrophilic Mucilloid 1 packet 07/22/24 09:00 07/22/24 08:31 Psyllium Powder Packet PO 1 packet DAILY ZULEMA Administration Senna/Docusate Sodium 1 tab 07/21/24 18:19 Senna/Docusate Sodium Tablet PO HS PRN Constipation Tamsulosin HCl 0.4 mg 07/21/24 21:00 07/21/24 21:06 Tamsulosin Hcl 0.4 Mg Capsule PO 0.4 mg HS ZULEMA Administration
--- NOTE | 2024-07-22 14:40 | WPDANESPN ---
Anes - Prog Note Post-Op Date/Time: 07/22/24 14:40 Cardiovascular status: normal Respiratory status: normal Airway patency: baseline Mental status: baseline Post-Op hydration status: normal Vital Signs: Last Vital Signs Temp 37.0 C 07/22/24 09:19 Pulse 64 07/22/24 13:24 Resp 18 07/22/24 13:24 BP 133/64 07/22/24 13:24 Pulse Ox 97 07/22/24 13:24 O2 Del Method Room Air 07/22/24 12:14 O2 Flow Rate 8 07/21/24 17:05 Pain Score (VAS): 3 I/O: Intake & Output 07/21/24 07/22/24 07/22/24 23:59 07:59 15:59 Intake Total 300 1250 477 Output Total 20 150 Balance 280 1100 477 Post-procedural complaints: none Patient Feedback: Patient satisfied with anesthetic care.
== END 2024-07-22 15:25 | disposition home or self-care (01) ==
LOC: ANHSURGERY 12:58 → ANH3MEDSUR 07-22 11:30
PROVIDERS: PCP Pediatrics; Visit Provider Neurological Surgery
PROC: (CPT 63005; principal; 2024-07-21 15:00)
DX: M48.062 Spinal stenosis, lumbar region with neurogenic claudication (principal); I10 Essential (primary) hypertension; K21.9 Gastro-esophageal reflux disease without esophagitis; M19.90 Unspecified osteoarthritis, unspecified site; Z79.891 Long term (current) use of opiate analgesic; Z98.890 Other specified postprocedural states; Z98.1 Arthrodesis status; Z87.891 Personal history of nicotine dependence; Z82.49 Family history of ischemic heart disease and other diseases of the circulatory system
CPT/HCPCS: 63047; 63048; 97161; 97165; 97535; 99199; A9270; J0690; J1100; J2003; J2004; J2270; J2405; J2704; J3010; J3480; J7120

== ENCOUNTER 2025-02-24 13:15 | Outpatient (CLI) | payer MEDICARE, SELFPAY ==
--- NOTE | ~2025-02-24 | CT_ITS ---
EXAMINATION: CT_LELTCHWO_CT DATE: 02/24/2025 13:37 INDICATION: Preoperative planning TECHNIQUE: High resolution computed tomography (CT) of the left lower extremity from the hip through the ankle was performed without intravenous contrast. Additional sagittal and coronal reconstructions were performed. Automated exposure control and iterative reconstruction technique were employed. The dose- length product was 883.52 mGy-cm. COMPARISON: None FINDINGS: Medial unicompartmental arthroplasty at the left knee which appears well seated in near-anatomic alignment with no periprosthetic lucency to suggest loosening or infection. No fracture, periosteal reaction, suspicious lytic or blastic bone lesions or suspected osteonecrosis. Severe osteoarthritis at the left hip with extensive subarticular sclerosis and cystlike changes along both the left femoral head and acetabulum. Moderate osteoarthritis at the bilateral sacroiliac joints with anterior bridging osteophytes on both the left and right. Additional mild polyarticular osteoarthritis at the right hip, right knee and at the lateral and patellofemoral compartments of the left knee. No hip or knee joint effusions. Mild to moderate lower lumbar spondylosis with severe lower lumbar facet osteoarthritis. L5 laminectomy and partial L4 laminectomy. Large fat- containing left indirect inguinal hernia which extends into the scrotum. Moderate diverticulosis along the visualized sigmoid colon without adjacent from trace stranding to suggest diverticular colitis. Normal appendix. Bladder is unremarkable. Mild prostatomegaly measuring 3.7 x 3.5 cm. No free fluid in the pelvis. No pathologically enlarged pelvic or inguinal lymphadenopathy. IMPRESSION: 1. Severe left hip osteoarthritis. 2. Large fat-containing left inguinal hernia. 3. Mild prostatomegaly. Reviewed, dictated and finalized at location A. ENSATION CONSULTING MANAGER
[2025-02-24 14:11] LABS: Hematocrit 44.5 % (42.0-52.0); Hemoglobin 14.9 g/dL (14.0-18.0)
--- OUTSIDE RECORDS SUMMARY | 2025-02-24 14:26 | XMS_ITS | Clinical Summary ---
Author Organization [facility] Address [address] [place] [address] Phone Care Team Providers Care Well Services Operator Name Role Phone Kvng Snider MD Primary Care Provider [phone] Allergies No known active allergies Medications omeprazole [...] 10:36 AM CDT Height 174 cm (5' 8.5) 09/18/2016 10:36 AM CDT Body Mass Index 31.62 09/18/2016 10:36 AM CDT Plan of Treatment Health Maintenance Due Date Last Done Comments TdaP Immunization 1950 Cologuard 1994 Colonoscopy 1994 Colorectal Cancer Screening 1994 Immunochemical Fecal Occult Blood 1994 Pneumococcal Immunization (5 0+ years) (1 of 1 - PCV) 10/07/1999 Zoster Immunization (1 of 2) 10/07/1999 Medicare Initial AWV [id number] 09/23/2015 Respiratory Syncytial Virus (RSV) Immunization (Adult) (1 - 1-dose 75+ series) 2024 Influenza Immunization (#1) 2024 SARS-COV-2 Immunization ( - 2024- season) 2024 Hepatitis C Virus (HCV) Screening Completed 015 Hepatitis B Immunization Aged Out No longer eligible based on patient's age to complete this topic Human Papillomavirus (HPV) Immunization Aged Out No longer eligible b ased on patient's age to complete this topic Meningococcal Immunization (ACWY) Aged Out No longer eligible based on patient's age to complete this topic Rotavirus Immunization Aged Out No lo nger eligible based on patient's age to complete this topic Insurance [facility] MEDICARE MEDICARE C AETNA Care Teams Well Services Operator Relationship Specialty Start Date End Date Kvng Snider MD [address] [place] [address] PCP - General Pediatrics 09/06/16
--- OUTSIDE RECORDS SUMMARY | 2025-02-24 14:26 | XMS_ITS | Clinical Summary ---
Author Organization [facility] Address [address] [place] [address] Care Team Providers Care Bulldozer Engineer Name Role Phone Kvng Snider MD Primary Care Provider [phone] Jose Rodriguez MD Unavailable [phone] Allergies Active Allergy Reactions Criticality Noted Date Comments Levofloxacin Rash Low 03/09/2019 Medications lisinopril (PRINIVIL) 40 MG tablet Take 1 tablet (40 mg total) by mouth daily. Active carvedilol (COREG) 12.5 MG tablet Take 1 tablet (12.5 mg total) by mouth 2 (two) times daily with meals. Active amLODIPine (NORVASC) 10 MG tablet Take 1 tablet (10 mg total) by mouth daily. 10/12/2024 Active omeprazole (PRILOSEC) 20 MG capsule Take 1 capsule (20 mg total) by mouth daily. Active febuxostat (ULORIC) 40 MG tablet Take 1 tablet (40 mg total) by mouth daily. Active diclofenac EC (VOLTAREN) 75 MG tablet Take 1 tablet (75 mg total) by mouth 2 (two) times daily as needed. Active tamsulosin (FLOMAX) 0.4 MG Cap Take 1 capsule (0.4 mg total) by mouth daily. Active psyllium 3.4 g (METAMUCIL) 95 % packet Take 1 packet by mouth 2 (two) times daily. Active Active Problems Problem Noted Date Diagnosed Date Essential (primary) hypertension 12/21/2024 Abdominal pain 10/12/2024 SOB (shortness of breath) 07/23/2023 Chest heaviness 07/23/2023 Urinary frequency 03/09/2019 Nocturia 03/09/2019 Stranguria 03/09/2019 Urgency of urination 03/09/2019 Resolved Problems Problem Noted Date Diagnosed Date Resolved Date Pre-op exam 12/21/2024 12/28/2024 Encounters Date Type Department Care Team Description 01/07/2025 Telephone [facility] [address] [place] [address] Jose Rodriguez MD Results 01/04/2025 Results Follow-Up [facility] [address] [place] [address] Kaleigh Olvera, KIN USE ECHOCARDIOGRAM 12/30/2024 7:55 AM CDT - 12/30/2024 11:59 PM CDT Hospital Encounter [facility] Ultrasound [address] [place] [address] Jose Rodriguez MD Discharge Disposition: Home or Self Care (Routine Discharge) 12/30/2024 Travel 12/24/2024 Telephone [facility] [address] [place] [address] Jose Rodriguez MD Schedule Test 12/21/2024 3:30 PM CDT Office Visit [facility] [address] [place] [address] Jose Rodriguez MD Consult 12/21/2024 Travel 12/17/2024 Orders Only [facility] [address] [place] [address] Jose Rodriguez MD 12/17/2024 Orders Only [facility] [address] [place] [address] Jose Rodriguez MD 12/16/2024 Telephone [facility] [address] [place] [address] Jose Rodriguez MD Surgical Clearance from Last 3 Months Family History Medical History Relation Comments bladder cancer Mother Relation Status Comments Mother Social History Tobacco Use Types Packs/Day Years Used Date Smoking Tobacco: Former Smokeless Tobacco: Never Alcohol Use Standard Drinks/Week Comments Yes 0 (1 standard drink = 0.6 oz pur e alcohol) [facility] Utilities Answer Date Recorded In the past 12 months has e electric, gas, oil, or water company threatened to shut off services in your home? No 10/12/2024 Humiliation, Afraid, Rape, and Kick questionnair e Answer Date Recorded Within the last year, have y ou been afraid of your partner or ex-partner? No 10/12/2024 Within the last year, have y ou been humiliated or emotionally abused in other ways by your partner or ex-partner? No Within the last year, have y ou been kicked, hit, slapped, or otherwise physically hurt by your partner or ex-partner? No 10/12/2024 Within the last year, have y ou been raped or forced to have any kind of sexual activity by your partner or ex-partner? No 10/12/2024 Overall Financial Resource Strain (CARDIA) Answe r Date Recorded How hard is it for you to pa y for the very basics like food, housing, medical care, and heating? Not hard at all 10/12/2024 Hunger Vital Sign Answer Date Recorded Within the past 12 months, y ou worried that your food would run out before you got the money to buy more. Never true 10/13/19 25 Within the past 12 months, t he food you bought just didn't last and you didn't have money to get more. Never true 10/12/2024 PRAPARE - Transportation Answer Date Re corded In the past 12 months, has l ack of transportation kept you from medical appointments or from getting medications? No 09/23 In the past 12 months, has l ack of transportation kept you from meetings, work, or from getting things needed for daily living? No 10/12/2024 Housing Stability Vital Sign Answer Moisés e Recorded In the last 12 months, was t here a time when you were not able to pay the mortgage or rent on time? No 10/12/2024 In the past 12 months, how m any times have you moved where you were living? 0 10/12/2024 At any time in the past 12 m [facility], were you homeless or living in a [place] facility (including now)? No 10/12/2024 Sex and Gender Information Value Date Recorded Sex Assigned at Not on file Legal Sex Male 1:21 AM CDT Gender Identity Not on file Sexual Orientation Not on file Last Filed Vital Signs Vital Sign Reading Time Taken Comments Blood Pressure 134/80 12/21/2024 3:16 PM CDT Pulse 57 12/21/2024 3:16 PM CDT Temperature 36.9 C (98.4 F) 10/12/2024 6:02 PM CDT Respiratory Rate 16 12/21/2024 3:16 PM CDT Oxygen Saturation 96% 12/21/2024 3:16 PM CDT Inhaled Oxygen Concentration - - Weight 93.4 kg (206 lb) 12/21/2024 3:16 PM CDT Height 172.7 cm (5' 8) 12/21/2024 3:16 PM CDT Body Mass Index 31.32 12/21/2024 3:16 PM CDT Plan of Treatment Upcoming Encounters Date Type Department Care Team ([facility] Contact Info) Description 12/20/2025 12:15 PM CDT Office Visit [facility] [place] [phone] Jose Rodriguez MD [address] [place] [id number] Health Maintenance Due Date Last Done Comments Colorectal Cancer Screening Colonoscopy (10 Years) 1950 Annual Medicare Wellness Visit 2014 Zoster Vaccines (2 of 3) 06/18/2023 04/23/2023, 01/23 RSV Immunization or 60+ Years (1 - 1-dose 75+ series) 2024 COVID-19 Vaccine ( season) 2024 12/31/2023, 01/23/2023, 07/05/2021, Additional history exists Influenza Adult (#1) 2024 12/31/2023, 01/14/2021, 01/29/2019, Additional history exists DTaP, Tdap and Td Vaccines (2 - Td or Tdap) 05/26/2028 05/26/2018 Pneumococcal Vaccine: 50+ Years Completed 02/01/2020, 12/12/2018 Hepatitis C Completed 10/12/2024, 09/09/2014 AAA SCREENING Completed 10/13/2024, 09/23, 10/11/2024 Hepatitis A Vaccines Aged Out No long er eligible based on patient's age to complete this topic Meningococcal B Vaccine Aged Out No l onger eligible based on patient's age to complete this topic Meningococcal Vaccine Aged Out No conrad silvina eligible based on patient's age to complete this topic RSV Immunizations Under 20 Months Aged Out No longer eligible based on patient's age to complete this topic Procedures Procedure Name Priority Date/Time Associated Diagnosis Comments USE ECHOCARDIOGRAM Routine 12/30/2024 8: 38 AM CDT Pre-op exam Nonrheumatic aortic valve insufficiency ELECTROCARDIOGRAM (NON MIDMARK ACQUIRED) Routine 12/21/2024 3:25 PM CDT Pre-op exam HC HEPATITIS PANEL ACUTE STAT 025 12:[address] ABD+PEL W CON STAT 10/11/2024 12:3 7 PM CDT from Last 3 Months or Most Recently Relevant to Health Maintenance Results * USE ECHOCARDIOGRAM (12/30/2024 8:38 AM CDT) Anatomical Region Laterality Modality Cardiac Ultrasound 12/30/2024 8:05 AM CDT Narrative 01/03/2025 8:06 PM CDT MARTY ZAMORA Pat.Name: Ryan Munroe Pat.ID: [id number] St.Date: 12/30/2024 Refer.MD: Yousif, [facility] Exam Time: 8:05:00 AM Study Type:OUTREACH Height: 68 in Weight: 200 lb BSA: 2.04 m2 Age: 7 1950,74Y Sex: M Sonogrphr: Jamal Pat. Stat.:Outpatient Reason for Study:AI Procedures: Study performed at [facility], [place], [place] and interpreted by [facility]. 2D, M-mode, Doppler, Color Flow ++++++++++++++++++++++++++++++++++++ SUMMARY: ++++++++++++++++++++++++++++++++++++ The left ventricular systolic function is normal. The right ventricular function is normal. Mild aortic regurgitation. Trace to mild mitral regurgitation. ++++++++++++++++++++++++++++++++++++ FINDINGS: ++++++++++++++++++++++++++++++++++++ LV: The left ventricular size is normal. The left ventricular systolic function is normal. Estimated left ventricular ejection fraction is 55-60%. Left ventricular diastolic function is abnormal (grade 1 - impaired relaxation). RV: The right ventricle size is normal. The right ventricular function is normal. LA: Left atrial size is normal. RA: The right atrial size is normal. TOYA: No evidence of pericardial effusion. AO: Aorta is normal. PA: Unable to reliably quantitate pulmonary systolic pressure. SVn: Inferior vena cava is not assessable. AV: The aortic valve is trileaflet. No evidence of aortic valve stenosis. Mild aortic regurgitation. MV: Structurally normal mitral valve. Trace to mild mitral regurgitation. PV: The pulmonic valve is normal There is trace pulmonic regurgitation TV: The tricuspid valve appears structurally normal. There is trace tricuspid regurgitation. <Electronic Signature> 01/03/2025 08:06 PM Jose Rodriguez M.D. Procedure Note Jose Rodriguez MD - 01/03/2025 MARTY OUTREACH Pat.Name: Ludwig Ryan mcrae Pat.ID: [id number] .Date: 12/30/2024 : Yousif, [facility] Exam Time: 8:05:00 AM Study Type:OUTREACH Height: 68 in Weight: 200 lb BSA: 2.04 m2 Age: 7 1950,74Y Sex: M Sonogrphr: Pc Pat. Stat.:Outpatient Reason for Study:AI Procedures: Study performed at [facility], [place], [place] and interpreted by [facility]. 2D, M-mode, Doppler, Color Flow ++++++++++++++++++++++++++++++++++++ SUMMARY: ++++++++++++++++++++++++++++++++++++ The left ventricular systolic function is normal. The right ventricular function is normal. Mild aortic regurgitation. Trace to mild mitral regurgitation. ++++++++++++++++++++++++++++++++++++ FINDINGS: ++++++++++++++++++++++++++++++++++++ LV: The left ventricular size is normal. The left ventricular systolic function is normal. Estimated left ventricular ejection fraction is 55-60%. Left ventricular diastolic function is abnormal (grade 1 - impaired relaxation). RV: The right ventricle size is normal. The right ventricular function is normal. LA: Left atrial size is normal. RA: The right atrial size is normal. TOYA: No evidence of pericardial effusion. AO: Aorta is normal. PA: Unable to reliably quantitate pulmonary systolic pressure. SVn: Inferior vena cava is not assessable. AV: The aortic valve is trileaflet. No evidence of aortic valve stenosis. Mild aortic regurgitation. MV: Structurally normal mitral valve. Trace to mild mitral regurgitation. PV: The pulmonic valve is normal There is trace pulmonic regurgitation TV: The tricuspid valve appears structurally normal. There is trace tricuspid regurgitation. <Electronic Signature> 01/03/2025 08:06 PM Jose Rodriguez M.D. Jose Rodriguez MD ECHO Final Result * ELECTROCARDIOGRAM (NON MIDMARK ACQUIRED) (12/21/2024 3:25 PM CDT) 12/21/2024 3:25 PM CDT [facility] - 12/21/2024 5:16 [place] [address] Test Date: 2024-12-21 Pat Name: RYAN MUNROE Department: 176 Room: Gender: Male Bag Cutter: : 1950 Requested By: JOSE RODRIGUEZ Order Number: [id number] Reading MD: Jose Rodriguez Measurements Intervals [place] Rate: 57 P: -1 NE: 212 QRS: -9 QRSD: 94 T: 30 QT: 394 QTc: 384 Interpretive Statements SINUS BRADYCARDIA WITH FIRST DEGREE AV BLOCK MINIMAL VOLTAGE CRITERIA FOR LVH, CONSIDER NORMAL VARIANT POSSIBLE ANTERIOR MYOCARDIAL INFARCTION, PROBABLY OLD Procedure Note Jose Rodriguez MD - 12/21/2024 [place] [address] Test Date: 2024-12-21 Pat Name: RYAN MUNROE Department: 176 Room: Gender: Male Bag Cutter: : 1950 Requested By: JOSE RODRIGUEZ Order Number: [id number] Reading MD: Jose Rodriguez Measurements Intervals [place] Rate: 57 P: -1 NE: 212 QRS: -9 QRSD: 94 T: 30 QT: 394 QTc: 384 Interpretive Statements SINUS BRADYCARDIA WITH FIRST DEGREE AV BLOCK MINIMAL VOLTAGE CRITERIA FOR LVH, CONSIDER NORMAL VARIANT POSSIBLE ANTERIOR MYOCARDIAL INFARCTION, PROBABLY OLD Jose Rodriguez MD PROCEDURES-ORDERABLE NO AMBAR GE Final Result [facility] * HEPATITIS PANEL,ACUTE (10/12/2024 12:58 PM CDT) HEPATITIS B SURFACE AG NON-REACTI VE NON-REACTI VE 10/12/2024 2:24 PM CDT [facility] HEP B CORE IGM NON-REACTI VE NON-REACTI VE 10/12/2024 2:34 PM CDT [facility] HAV IGM NON-REACTI VE NON-REACTI VE 10/12/2024 2:36 PM CDT [facility] HEPATITIS C AB NON-REACTI VE NON-REACTI VE 10/12/2024 2:33 PM CDT [facility] 10/12/2024 12:5 8 PM CDT Gary Merchant MD LABORATORY Final Result [facility] [address] [place] [address], * CT ABD+PEL W IV CON ONLY (10/11/2024 12:37 PM CDT) Anatomical Region Laterality Modality Abdomen Computed Tomogra phy 10/11/2024 12:4 4 PM CDT Impressions 10/11/2024 12:54 PM CDT Impression: 1. Mild hazy fat stranding is seen about the gastric antrum and proximal duodenum. This is nonspecific but may represent underlying gastritis/duodenitis. Peptic ulcer disease cannot be definitively excluded. No distinct focal perforation is identified. 2. Splenomegaly. 3. Colonic diverticulosis without inflammatory changes. Ordered By: ALEX CHAPIN Interpreted By: Artemio Fuchs MD, 10/11/2024 12:44 PM Narrative 10/11/2024 12:54 PM CDT [address] [place] [address] Examination: CT abdomen and pelvis with IV contrast. Clinical Information: Diffuse abdominal pain. Comparison:CT 09/16/2014. Technique: IV contrast: 100 mL Isovue 370. Oral contrast: None. Technical comments: Standard technique. Dose reduction: This CT exam was performed using one or more of the following dose reduction techniques: Automated exposure control, adjustment of the mA and/or kV according to patient size, and/or use of iterative reconstruction technique. Findings: LOWER CHEST Heart is normal in size. Lung bases are clear. No pleural or pericardial effusions. UPPER ABDOMEN Liver and bile ducts: No focal liver lesion. Portal vein and hepatic veins are patent. No biliary dilatation. Gallbladder: Absent. Pancreas: Unremarkable. Spleen: The spleen is enlarged measuring 17.2 cm anterior to posterior. RETROPERITONEUM Adrenals: Normal. Kidneys: The kidneys enhance symmetrically with no distinct solid mass or hydronephrosis. A rounded hypodensities are seen within the left renal cortex, the largest measuring 1.8 cm, favored to represent cysts. No specific follow-up imaging required unless clinically indicated. Lymph nodes: No lymphadenopathy in the abdomen or pelvis. BOWEL AND PERITONEUM Bowel: There is mild hazy fat stranding about the gastric antrum and proximal duodenum, nonspecific. No distinct focal perforation noted. No evidence of acute small bowel obstruction. The appendix appears normal. Colonic diverticulosis without inflammatory changes. Free air or fluid: None. VASCULATURE The abdominal aorta is normal in caliber and demonstrates atherosclerotic calcification. PELVIS No abnormality. BONES/SOFT TISSUES No significant lesion. Procedure Note Artemio Fuchs MD - 10/11/[address] [place] [address] Examination: CT abdomen and pelvis with IV contrast. Clinical Information: Diffuse abdominal pain. Comparison:CT 09/16/2014. Technique: IV contrast: 100 mL Isovue 370. Oral contrast: None. Technical comments: Standard technique. Dose reduction: This CT exam was performed using one or more of thefollowing dose reduction techniques: Automated exposure control,adjustment of the mA and/or kV according to patient size, and/or use ofiterative reconstruction technique. Findings: LOWER CHEST Heart is normal in size. Lung bases are clear. No pleural or pericardialeffusions. UPPER ABDOMEN Liver and bile ducts: No focal liver lesion. Portal vein and hepaticveins are patent. No biliary dilatation. Gallbladder: Absent. Pancreas: Unremarkable. Spleen: The spleen is enlarged measuring 17.2 cm anterior to posterior. RETROPERITONEUM Adrenals: Normal. Kidneys: The kidneys enhance symmetrically with no distinct solid mass orhydronephrosis. A rounded hypodensities are seen within the left renalcortex, the largest measuring 1.8 cm, favored to represent cysts. Nospecific follow-up imaging required unless clinically indicated. Lymph nodes: No lymphadenopathy in the abdomen or pelvis. BOWEL AND PERITONEUM Bowel: There is mild hazy fat stranding about the gastric antrum andproximal duodenum, nonspecific. No distinct focal perforation noted. Noevidence of acute small bowel obstruction. The appendix appears normal.Colonic diverticulosis without inflammatory changes. Free air or fluid: None. VASCULATURE The abdominal aorta is normal in caliber and demonstrates atheroscleroticcalcification. PELVIS No abnormality. BONES/SOFT TISSUES No significant lesion. Impression: 1. Mild hazy fat stranding is seen about the gastric antrum and proximalduodenum. This is nonspecific but may represent underlyinggastritis/duodenitis. Peptic ulcer disease cannot be definitivelyexcluded. No distinct focal perforation is identified. 2. Splenomegaly. 3. Colonic diverticulosis without inflammatory changes. Ordered By: ALEX CHAPIN Interpreted By: Artemio Fuchs MD, 10/11/2024 12:44 PM Alex Chapin MD CT Final Result from Last 3 Months or Most Recently Relevant to Health Maintenance Insurance [employer] MEDICARE Care Teams Bulldozer Engineer Relationship Specialty Start Date End Date Kvng Snider MD [address] [place] [id number] PCP - General PEDIATRICS 03/03/19 Jose Rodriguez MD [address] [address] Physician INTERVENTIONAL CARDIOLOGY 10/21/23
--- OUTSIDE RECORDS SUMMARY | 2025-02-24 14:26 | XMS_ITS | Encounter Summary ---
Author Organization [facility] Address [address] [place] [address] Phone Care Team Providers Care Director Of Optimization Name Role Phone Kvng Snider MD Primary Care Provider [phone] Encounter Details Date Type Department Care Team (Late st Contact Info) Description 10/12/2024 Telephone [facility] [address] [place] [address] Mayte Tomlin MD [address] [place] [address] Social History Tobacco Use Types Packs/Day Years Used Date Smoking Tobacco: Never Sex and Gender Information Value Date Recorded Sex Assigned at Not on file Legal Sex Male 2:19 AM CDT Gender Identity Not on file Sexual Orientation Not on file documented as of this encounter Miscellaneous Notes * Telephone Encounter - Stephani Funez RN - 10/12/2024 11:04 AM CDT In care everywhere pt is in ED at [facility]. * Telephone Encounter - Kalpana Lyons RN - 10/12/2024 9:07 AM CDT Attempted to call patient and no answer. Left vm to return call. Spoke with Sharon at PCP office andnotified of below. Verbalized understanding and states she will try to reach out to patient or spouse. * Telephone Encounter - Moe Watson - 10/12/2024 8:05 AM CDT Jerry Munroe charles 48 called this morning. Said you talked to the ER doctor about him. He was in [facility] ER. They acted like they were supposed to be seen in [place] today??! I have to call them back - what are your thoughts? documented in this encounter Plan of Treatment Not on file documented as of this encounter Visit Diagnoses Not on filedocumented in this encounter Care Teams Director Of Optimization Relationship Specialty Start Date End Date Kvng Snider MD [address] [place] [address] PCP - General Pediatrics 09/06/16 documented as of this encounter
--- OUTSIDE RECORDS SUMMARY | 2025-02-24 14:26 | XMS_ITS | Clinical Summary ---
Author Organization [facility] [employer] Address [address] [place] [address] Care Team Providers Care Marketing Program Manager Name Role Phone Niraj Snider MD Primary Care Provider [phone] Source Comments [facility],non-owned Affiliates and Associated Physician Practices is amultiple site organization consisting of ambulatory clinics and hospital sitesin [place], [place], [place] and [place]. This disclosure is being madepursuant to the Care Everywhere program and may not contain all informatio navailable regarding this patient. Last updated 17.[facility] Allergies Active Allergy Reactions Criticality Noted Date Comments Levofloxacin Other 10/16/2024 Patient reported he felt hot when he took it Medications * Be aware that medications may not be up to date on this document. Alwaysverify current medications with the patient. amLODIPine (Norvasc) 10 MG tablet Take 1 (one) tablet by mouth once daily 5 Active carvedilol (Coreg) 12.5 MG tablet Take 1 (one) tablet by mouth 2 times daily with morning and evening meal Active omeprazole (PriLOSEC) 20 MG capsule Take 1 (one) capsule by mouth daily before breakfast Active tamsulosin (Flomax) 0.4 MG capsule Take 1 (one) capsule by mouth once daily 5 Active lisinopril (Prinivil; Zestril) 40 MG tablet Take 1 (one) tablet by mouth once daily Active diclofenac sodium EC (Voltaren) 75 MG tablet Take 1 (one) tablet by mouth 2 times daily as needed (for pain) Active febuxostat (Uloric) 40 MG tablet Take 1 (one) tablet by mouth once daily Active Psyllium (METAMUCIL PO) Take by mouth once daily 1 tablespoon Active Active Problems Problem Noted Date Diagnosed Date Elevated liver enzymes 10/15/2024 Thrombocytopenia 10/15/2024 Splenomegaly 10/15/2024 Joint pain 10/15/2024 Pancytopenia 10/15/2024 Elevated bilirubin 10/12/2024 Encounters Date Type Department Care Team Description 02/10/2025 Telephone [facility] [place] [address] Krishna Kate MD Appointment from Last 3 Months Social History Tobacco Use Types Packs/Day Years Used Date Smoking Tobacco: Former Cigarettes Smokeless Tobacco: Never Tobacco Cessation:Counseling Given: Not Answered AUDIT-C Answer Date Recorded Q1: How often do you have a drink containing alcohol? Never 10/13/2024 Q2: How many drinks containi ng alcohol do you have on a typical day when you are drinking? Patient does not drink Q3: How often do you have si x or more drinks on one occasion? Never 10/13/2024 Overall Financial Resource Strain (CARDIA) Answe r Date Recorded How hard is it for you to pa y for the very basics like food, housing, medical care, and heating? Not hard at all 10/13/2024 PHQ-2 Answer Date Recorded Patient Health Questionnaire-2 Score 0 11/17/2024 [facility] Occupat ional Health - Occupational Stress Questionnaire Answer Date Recorded Do you feel stress - tense, restless, nervous, or anxious, or unable to sleep at night because your mind is troubled all the time - these days? Not at all 10/13/2024 Hunger Vital Sign Answer Date Recorded Within the past 12 months, y ou worried that your food would run out before you got the money to buy more. Never true 10/14/19 25 Within the past 12 months, t he food you bought just didn't last and you didn't have money to get more. Never true 10/13/2024 PRAPARE - Transportation Answer Date Re corded In the past 12 months, has l ack of transportation kept you from medical appointments or from getting medications? No 09/23 In the past 12 months, has l ack of transportation kept you from meetings, work, or from getting things needed for daily living? No 10/13/2024 Housing Stability Vital Sign Answer Moisés e Recorded In the last 12 months, was t here a time when you were not able to pay the mortgage or rent on time? No 10/13/2024 In the past 12 months, how m any times have you moved where you were living? 0 10/13/2024 At any time in the past 12 m [facility], were you homeless or living in a custodial (including now)? No 10/13/2024 Sex and Gender Information Value Date Recorded Sex Assigned at Not on file Legal Sex Male 2:46 PM CDT Gender Identity Not on file Sexual Orientation Not on file Last Filed Vital Signs Vital Sign Reading Time Taken Comments Blood Pressure 145/68 11/17/2024 2:30 PM CDT Pulse 57 11/17/2024 2:30 PM CDT Temperature 36.8 C (98.2 F) 11/17/2024 2:30 PM CDT Respiratory Rate 19 10/16/2024 11:0 4 AM CDT Oxygen Saturation 98% 11/17/2024 2:30 PM CDT Inhaled Oxygen Concentration - - Weight 91.5 kg (201 lb 12.8 oz) 11/17/2024 2:30 PM CDT Height 172.7 cm (5' 8) 11/17/2024 2:30 PM CDT Body Mass Index 30.68 11/17/2024 2:30 PM CDT Plan of Treatment Health Maintenance Due Date Last Done Comments COLOGUARD (AGES 45-75) - COLON CA SCREENING 1949 COLON MONITORING 1949 COLONOSCOPY - COLON CA SCREENING 1949 CT COLONOGRAPHY - COLON CA SCREENING 1949 Colorectal Cancer Screening 1949 FIT - COLON CA SCREENING 1949 FLEX SIG - COLON CA SCREENING 1949 LIPID TESTING 1949 HEPATITIS C SCREENING 10/02/1967 DTAP/TDAP/TD VACCINES (1 - Tdap) 1968 PNEUMOCOCCAL VACCINE 50+ (1 of 2 - PCV) 1968 ZOSTER VACCINE (1 of 2) 1968 MEDICARE AWV CALENDAR YEAR 2024 Respiratory Syncytial Virus (RSV) Vaccine Pt: or over 60 yrs (1 - 1-dose 75+ series) 2024 COVID-19 VACCINE ( season) 2024 12/31/2023, 01/23/2023, 12/06/2021, Additional history exists INFLUENZA VACCINE (#1) 2024 , 01/23/2023, 12/06/2021, Additional history exists DEPRESSION SCREENING Completed 11/17/2024 HEPATITIS B VACCINE Aged Out No longe r eligible based on patient's age to complete this topic HIB VACCINE Aged Out No longer eligi ble based on patient's age to complete this topic HPV VACCINE Aged Out No longer eligi ble based on patient's age to complete this topic MENINGOCOCCAL (Group B) VACCINE SHARED DECISION-MAKING Aged Out No longer eligible based on patient's age to complete this topic MENINGOCOCCAL GROUPS A/C/Y/W VACCINE Aged Out No longer eligible based on patient's age to complete this topic Insurance [employer] MEDICARE ADV Advance Directives * Full Code (Latest Code Status on File) Date Activated Date Inactivated Comments 10/13/2024 12:25 AM 10/16/2024 4:11 PM Care Teams Marketing Program Manager Relationship Specialty Start Date End Date Niraj Snider MD [address] [place] [address] PCP - General Family Medicine 10/13/24
[2025-02-24 14:27] LABS: Albumin Level 4.2 g/dL (3.5-5.1); Estimated Glomerular Filt Rate > 60
== END 2025-02-24 13:16 | disposition home or self-care (01) ==
PROVIDERS: PCP Pediatrics; Visit Provider Orthopaedic Surgery
DX: M16.12 Unilateral primary osteoarthritis, left hip (principal); Z01.818 Encounter for other preprocedural examination; Z79.899 Other long term (current) drug therapy; K40.90 Unilateral inguinal hernia, without obstruction or gangrene, not specified as recurrent; N40.0 Benign prostatic hyperplasia without lower urinary tract symptoms
CPT/HCPCS: 73700; 80307; 82040; 82565; 85014; 85018